=== PATIENT | female | born 1945 | race American Indian/Alaskan Native ===

== ENCOUNTER 2017-10-22 19:21 | Observation (INO) | payer OTHER, MEDICARE ==
--- NOTE | 2017-10-22 19:37 | PDOC ---
History of Present Illness - General History Source: Patient Exam Limitations: No Limitations - History of Present Illness Initial Comments: 10/22/17 21:28 The patient is a 72 year old female, with a significant past medical history of HTN, HLD, GERD, Fibromyalgia, Cervical spondylosis, Kidney stones who presents to the emergency department with generalized weakness today. Patient is accompanied by daughter who reports patient was bent over gardening this afternoon. Later, patient walked into the house and felt increasingly dizzy and lightheaded. Patient laid down and daughter measured her blood pressure ( 80/50) . Daughter gave salt water however her BP did not increase. Patient denies any previous episodes of hypotension and presents to the ED for further evaluation. Patient endorses chills, nausea and SOB enroute to the ED. Patient notes chronic neck pain, 10/10 in severity, radiating from the base of skull down to her back. Patient took Tylenol at home however denies any relief. Patient denies chest pain, palpitations, diaphoresis, headache. Patient denies fever, abdominal pain, vomit, diarrhea or constipation. Patient denies dysuria, frequency, urgency or hematuria. Patient denies sick contacts or recent travel. Allergies: oxycodone, amoxicillin Past surgical history: None Social history: denies etoh, smoking, recreational drug use PCP: Dr. Cazares <Mary Ross - Last Filed: 10/23/17 00:28> - General History Source: Patient Exam Limitations: No Limitations <Nevaeh Quintero - Last Filed: 10/23/17 00:31> - General Chief Complaint: Weakness Stated Complaint: WEAKNESS Time Seen by Provider: 10/22/17 19:36 Past History <Mary Ross - Last Filed: 10/23/17 00:28> - Past Medical History Anemia: No Asthma: No COPD: No GI Disorders: Yes (gerd) HTN: Yes Hypercholesterolemia: Yes - Suicide/Smoking/Psychosocial Hx Smoking History: Never smoked Have you smoked in the past 12 months: No Hx Alcohol Use: No Substance Use Type: None Hx Substance Use Treatment: No <Nevaeh Quintero - Last Filed: 10/23/17 00:31> - Past Medical History Allergies/Adverse Reactions: Allergies Allergy/AdvReac Type Severity Reaction Status Date / Time acetaminophen [From Percocet] Allergy Unverified 10/22/17 21:38 amoxicillin [Amoxicillin] Allergy Verified 10/22/17 19:35 oxycodone HCl [From Percocet] Allergy Verified 10/22/17 19:35 Home Medications: Ambulatory Orders Atenolol [Tenormin -] 50 mg PO BID #0 tablet 05/19/13 Atorvastatin Ca [Lipitor] 10 mg PO HS #0 tablet 05/19/13 Gabapentin [Neurontin] 100 mg PO TID #0 capsule 05/19/13 Ibandronate Sodium [Boniva (Monthly)] 150 mg PO DAILY #0 tablet 05/19/13 Lansoprazole [Prevacid] 30 mg PO DAILY #0 tab. 05/19/13 Review of Systems - Review of Systems Able to Perform ROS?: Yes Comments:: 10/22/17 21:28 GENERAL/CONSTITUTIONAL: +chills. +generalized weakness. No: fever, weakness, loss of appetite. HEAD, EYES, EARS, NOSE AND THROAT: No: change in vision, ear pain, discharge, sore throat, throat swelling. CARDIOVASCULAR: No: chest pain, lightheadedness, palpitations, syncope RESPIRATORY: No: cough, shortness of breath, wheezing, hemoptysis, stridor. GASTROINTESTINAL: No: nausea, vomiting, abdominal cramping, diarrhea, rectal bleeding, constipation. GENITOURINARY: No: dysuria, hematuria, frequency, urgency, flank pain. MUSCULOSKELETAL: +neck pain. No: back pain, joint pain, muscle swelling or pain SKIN: No: lesions, pallor, rash or easy bruising. NEUROLOGIC: No: headache, vertigo, paresthesias, weakness ENDOCRINE: No: unexplained weight gain or loss HEMATOLOGIC/LYMPHATIC: No: anemia, easy bleeding, swelling nodes <Mary Ross - Last Filed: 10/23/17 00:28> *Physical Exam - Vital Signs Last Vital Signs Temp Pulse Resp BP Pulse Ox 97.2 F L 59 L 18 113/66 100 10/22/17 19:35 10/22/17 19:35 10/22/17 19:35 10/22/17 19:35 10/22/17 19:35 - Physical Exam Comments: 10/22/17 21:28 GENERAL: The patient is in no acute distress. HEAD: Normal with no signs of trauma. EYES: PERRLA, EOMI, sclera anicteric, conjunctiva clear. ENT: Ears normal, nares patent, oropharynx clear without exudates. Moist mucous membranes. NECK: Normal range of motion, supple without lymphadenopathy, JVD, or masses. LUNGS: Breath sounds equal, clear to auscultation bilaterally. No wheezes, and no crackles. HEART:Regular rate and rhythm, normal S1 and S2 without murmur, rub or gallop. ABDOMEN: Soft, nontender, normoactive bowel sounds. No guarding, no rebound. EXTREMITIES: Normal range of motion, no edema. No clubbing or cyanosis. No erythema, or tenderness. NEUROLOGICAL: Cranial nerves II through XII grossly intact. Normal speech. No focal neurological deficits. MUSCULOSKELETAL: Back nontender to palpation, no CVA tenderness SKIN: Warm, Dry, normal turgor, no rashes or lesions noted. <Mary Ross - Last Filed: 10/23/17 00:28> ED Treatment Course - LABORATORY CBC & Chemistry Diagram: 10/22/17 20:43 10/22/17 20:43 - ADDITIONAL ORDERS Additional order review: Laboratory Results 10/22/17 20:43 Urine Color Straw Urine Appearance Clear Urine pH 7.0 Ur Specific Union 1.005 Urine Protein Negative Urine Glucose (UA) Negative Urine Ketones Negative Urine Blood Negative Urine Nitrite Negative Urine Bilirubin Negative Urine Urobilinogen Negative Ur Leukocyte Esterase 1+ H Urine WBC (Auto) 7 Urine RBC (Auto) 1 Ur Epithelial Cells Rare 10/22/17 20:43 RBC 3.74 MCV 98.7 H MCHC 34.2 RDW 12.9 MPV 8.6 D Neutrophils % 67.2 Lymphocytes % 23.2 D Monocytes % 7.9 Eosinophils % 0.9 Basophils % 0.8 <Mary Ross - Last Filed: 10/23/17 00:28> - LABORATORY CBC & Chemistry Diagram: 10/22/17 20:43 10/22/17 20:43 <Nevaeh Quintero - Last Filed: 10/23/17 00:31> Medical Decision Making - Medical Decision Making Paged Dr. Cazares via cell number. Patient case discussed. Patient to be admitted under her service. 10/23/17 00:28 <Mary Ross - Last Filed: 10/23/17 00:28> - Medical Decision Making 10/22/17 21:21 Ms Su is a 72 yo F with a h/o HTN, HLD, Cervical spinal stenosis, fibromyalgia She presents to the ER with her daughter due to weakness Pt was in her usual state of health, noted her typical neck pain Took tylenol at 4pm She was in her garden, bent over working When she stood up and came in to the home, she noted worsening neck pain She also noted dizziness No chest pain No palpitations No vertigo No fevers or chills (+) nausea, (-) vomiting or diarrhea No prior episodes quite this bad Pt daughter took blood pressure at the time and noted that she was hypotensive Pt reported shortness of breath No chest pain 10/22/17 21:21 ON examination Pt appears weak Answers questions RRR CTA No abd tenderness Moves all extremities CN intacts Alert and oriented Will do: Labs EKG IV hydration CT head/neck CTA chest r/o PE Will place on observation EKG: SR, rate of 68 bpm, axis nml, intervals nml, no st elevations, t waves inverted v2-v6 (similar to prior) 10/22/17 21:51 Laboratory Tests 10/22/17 10/22/17 10/22/17 20:43 20:43 20:43 WBC 6.3 Hgb 12.6 Hct 36.9 Plt Count 268 Sodium 143 Potassium 4.4 Chloride 105 Carbon Dioxide 30 BUN 17 Creatinine 0.8 Random Glucose 124 H Creatine Kinase 101 Troponin I < 0.02 Urine Blood Negative Urine Nitrite Negative Ur Leukocyte Esterase 1+ H Urine WBC (Auto) 7 Ur Epithelial Cells Rare Pt ordered for tylenol for pain Pt going to CT head, cspine, CTA chest to eval for PE (given hypoxia, orthostasis) <Nevaeh Quintero - Last Filed: 10/23/17 00:31> *DC/Admit/Observation/Transfer - Attestations Scribe Attestion: 10/22/17 21:28 Documentation prepared by Mary Ross, acting as medical legal investigator for Nevaeh Quintero MD <Mary Ross - Last Filed: 10/23/17 00:28> - Discharge Dispostion Decision to Admit order: Yes <Nevaeh Quintero - Last Filed: 10/23/17 00:31> Diagnosis at time of Disposition: Dizziness, Pre-syncope Cervical spondylosis Qualifiers: Spinal osteoarthritis complication: unspecified spinal osteoarthritis Qualified Code(s): M47.812 - Spondylosis without myelopathy or radiculopathy, cervical region - Discharge Dispostion Condition at time of disposition: Stable
[2017-10-22 20:49] LABS: BASO % 0.8 % (0-2.0); EOS % 0.9 % (0-4.5); HEMATOCRIT 36.9 % (32.4-45.2); HEMOGLOBIN 12.6 GM/dL (10.7-15.3); LYMPH % 23.2 % (8-40); MCH 33.7 pg (25.7-33.7); MCHC 34.2 g/dl (32.0-36.0); MEAN CELL VOLUME 98.7 fl (80-96); MEAN PLT VOLUME 8.6 fl (7.5-11.1); MONO % 7.9 % (3.8-10.2); NEUT % 67.2 % (42.8-82.8); PLATELET COUNT 268 K/MM3 (134-434); RBC 3.74 M/mm3 (3.60-5.2); RDW 12.9 % (11.6-15.6); WHITE BLOOD COUNT 6.3 K/mm3 (4.0-10.0)
[2017-10-22 20:52] LABS: URINE APPEARANCE CLEAR; URINE BILIRUBIN NEGATIVE (<2.0 mg/dL); URINE COLOR STRAW; URINE GLUCOSE (UA) NEGATIVE (NEGATIVE); URINE KETONE NEGATIVE (NEGATIVE); URINE NITRITE NEGATIVE (NEGATIVE); URINE PROTEIN NEGATIVE (NEGATIVE); URINE UROBILINOGEN NEGATIVE mg/dL (0.2-1.0)
[2017-10-22 20:57] LABS: URINE LEUK ESTERASE 1+ (NEGATIVE)
[2017-10-22 21:02] LABS: EPI CELLS RARE /HPF (FEW)
[2017-10-22] MEDS ORDERED: ACETAMINOPHEN 1000 MG/100 ML VIAL (NON FORMULARY) IVPB ONE (21:21)
[2017-10-22 21:28] LABS: ALBUMIN 3.8 g/dl (3.4-5.0); ANION GAP 8 (8-16); BILIRUBIN,TOTAL 0.2 mg/dL (0.2-1.0); BLOOD UREA NITROGEN 17 mg/dL (7-18); CALCIUM 8.8 mg/dL (8.5-10.1); CHLORIDE 105 mmol/L (98-107); CO2 30 mmol/L (21-32); CREATININE 0.8 mg/dL (0.55-1.02); GLUCOSE,RANDOM 124 mg/dL (74-106); SGPT/ALT 28 U/L (12-78); SODIUM 143 mmol/L (136-145); TOT PROT 7.2 g/dl (6.4-8.2)
[2017-10-22 21:31] LABS: ALK PHOS 92 U/L (45-117)
[2017-10-22 21:34] LABS: POTASSIUM 4.4 mmol/L (3.5-5.1); SGOT/AST 47 U/L (15-37)
[2017-10-23] MEDS ORDERED: morphine CARPU-JECT 4 MG/1 ML DISP.SYRIN IVPUSH ONE (00:27)
[2017-10-23] MEDS ORDERED: morphine SULFATE 4 MG/ML VIAL ONE ×2 (00:50→10:56)
[2017-10-23] MEDS ORDERED: ONDANSETRON 4 MG/2 ML VIAL IVPB ONE (04:01)
[2017-10-23] MEDS ORDERED: ONDANSETRON 4 MG/2 ML VIAL ONE ×2 (04:02→10:56)
[2017-10-23] MEDS ORDERED: MECLIZINE HCL 25 MG TABLET (FP) PO ONE (04:16)
[2017-10-23 05:30] VITALS: BMI 24.5
--- NOTE | 2017-10-23 08:55 | EKG ---
Test Reason : Blood Pressure : / mmHG Vent. Rate : 068 BPM Atrial Rate : 068 BPM P-R Int : 138 ms QRS Dur : 082 ms QT Int : 394 ms P-R-T Axes : 047 005 025 degrees QTc Int : 418 ms NORMAL SINUS RHYTHM T WAVE ABNORMALITY, CONSIDER ANTERIOR ISCHEMIA ABNORMAL ECG WHEN COMPARED WITH ECG OF 18-MAY-2013 11:05, NO SIGNIFICANT CHANGE WAS FOUND Confirmed by RHONDA LEUNG MD ([id number]) on 10/23/2017 8:55:24 AM Referred By: Confirmed By:RHONDA LEUNG MD
--- NOTE | 2017-10-23 09:03 | CON.NEURO ---
Consult Consult Specialty:: neurology Reason for Consultation:: dizziness - History of Present Illness History of Present Illness: The patient is a 72 year old female, with a significant past medical history of HTN, HLD, GERD, Fibromyalgia, Cervical spondylosis, Kidney stones who presents to the emergency department with generalized weakness today. Patient is accompanied by daughter who reports patient was bent over gardening this afternoon. Later, patient walked into the house and felt increasingly dizzy and lightheaded. Patient laid down and daughter measured her blood pressure ( 80/50) . Daughter gave salt water however her BP did not increase. Patient denies any previous episodes of hypotension and presents to the ED for further evaluation. Patient endorses chills, nausea and SOB enroute to the ED. Patient notes chronic neck pain, 10/10 in severity, radiating from the base of skull down to her back. Patient took Tylenol at home however denies any relief. I saw and examined the pt at the bedside. She started having dizziness since yesterday ; describes as through vertigo, unsteady when she gets up. Allergies: oxycodone, amoxicillin Past surgical history: None Social history: denies etoh, smoking, recreational drug use PCP: Dr. Cazares - Alcohol/Substance Use Hx Alcohol Use: No - Smoking History Smoking history: Never smoked Have you smoked in the past 12 months: No Home Medications - Allergies Allergies/Adverse Reactions: Allergies Allergy/AdvReac Type Severity Reaction Status Date / Time amoxicillin [Amoxicillin] Allergy Verified 10/23/17 00:56 oxycodone HCl [From Percocet] Allergy Verified 10/23/17 00:56 - Home Medications Home Medications: Ambulatory Orders Atenolol [Tenormin -] 50 mg PO BID #0 tablet 05/19/13 Lansoprazole [Prevacid] 30 mg PO DAILY #0 tab 05/19/13 Atorvastatin Ca [Lipitor] 10 mg PO DAILY 10/23/17 Gabapentin [Neurontin] 200 mg PO BID 10/23/17 Ibandronate Sodium [Boniva (Monthly)] 150 mg PO MONTHLY 10/23/17 Review of Systems - Review of Systems Constitutional: reports: Other (dizziness) Eyes: reports: No Symptoms HENT: reports: No Symptoms Neck: reports: Other (pain) Cardiovascular: reports: No Symptoms Respiratory: reports: No Symptoms Gastrointestinal: reports: No Symptoms Physical Exam-Neuro Vital Signs: Vital Signs Temperature 97.9 F 10/23/17 06:00 Pulse Rate 68 10/23/17 06:00 Respiratory Rate 20 10/23/17 06:00 Blood Pressure 123/68 10/23/17 06:00 O2 Sat by Pulse Oximetry (%) 99 10/23/17 04:15 Constitutional: Yes: Well Nourished, Mild Distress Cardiovascular: Yes: Regular Rate and Rhythm Respiratory: Yes: CTA Bilaterally Gastrointestinal: Yes: WNL Labs: CBC, BMP 10/22/17 20:43 10/22/17 20:43 - Neuro Exam Level Of Consciousness: Yes: Oriented to Person, Oriented to Place, Oriented to Time Eyes: Yes: PERRLA Speech: WNL Cranial Nerves II-XII Intact: Yes DTR's: 1+ Left Bicep, 1+ Right Bicep, 1+ Left Tricep, 1+ Right Tricep, 1+ Left Brachioradialis, 1+ Right Brachioradialis, 1+ Left Achilles, 1+ Right Achilles Response to light touch: Normal Response to pain prick: Normal Coordination: Normal: Finger to Nose, Heel to [place] Motor Strength: 5/5: Left Arm, Right Arm, Left Leg, Right Leg Gait: Other (unsteady ) Imaging - Results Cat Scan: Image Reviewed (CTH :No acute finding CT cervical : DDD, osteophyte, spondylolysthesis) Problem List - Problems (1) Cervical spondylosis Code(s): M47.812 - SPONDYLOSIS W/O MYELOPATHY OR RADICULOPATHY, CERVICAL REGION Qualifiers: Spinal osteoarthritis complication: unspecified spinal osteoarthritis Qualified Code(s): M47.812 - Spondylosis without myelopathy or radiculopathy, cervical region (2) Dizziness Code(s): R42 - DIZZINESS AND GIDDINESS (3) Pre-syncope Code(s): R55 - SYNCOPE AND COLLAPSE Assessment/Plan 72 year old female, with a significant past medical history of HTN, HLD, GERD, Fibromyalgia, Cervical spondylosis, Kidney stones who presents to the emergency department with generalized weakness and dizziness. She feels vertigo even when lying down, unsteady and nauseated, no dysmetria or focal weakness ; CN intact ; Hx and exam suggestive of ? posterior circulation involvement VS vestibular lesion; not a tPA candidate b/o out of window for tPA administration; I will obtain MRI /a WO stat MRA neck wo Meclizine as needed PT/OT Fall precautions baby asp for stroke prevention Neurocheck q 4 hours B12, TSH, RPR, Homocysateine Health maintenance per primary team Thank you for allowing us to participate in the care of this patioent. Ankush Cherry MD
[2017-10-23] MEDS ORDERED: traMADol HCL 50 MG TABLET PO PRN (09:57)
[2017-10-23] MEDS ORDERED: GABAPENTIN 400 MG CAPSULE (FP) PO SCH (10:00)
--- NOTE | 2017-10-23 10:05 | PN ---
Progress Note (short form) - Note Progress Note: Chief Complaint: Events noted, noted reviewed. Complaining of persistent dizziness with nausea, denies any vomiting, complaining of generalized weakness and neck discomfort, denies any chest pain or dyspnea History of Present Illness: Seen and examined on telemetry. Full consult dictated - Current Medication List Current Medications Atenolol (Tenormin -) 50 mg PO BID ALLAN Atorvastatin Calcium (Lipitor -) 10 mg PO HS ALLAN Gabapentin (Neurontin -) 400 mg PO BID ALLAN Levofloxacin (Levaquin -) 500 mg PO DAILY@0600 ALLAN Meclizine HCl (Antivert -) 12.5 mg PO BID ALLAN Pantoprazole Sodium (Protonix -) 40 mg PO DAILY ALLAN Tramadol HCl (Ultram -) 50 mg PO Q8H PRN PRN Reason: PAIN- - Review of Systems Constitutional: denies: Chills, Fever Cardiovascular: As noted above Respiratory: denies: Cough or Sputum Production Gastrointestinal: denies: Vomiting, Diarrhea, Constipation or Abdominal Pain but reports: Nausea Genitourinary: denies: Dysuria Neurological: reports: Dizziness but denies: Headaches Endocrine: denies: Intolerance to Cold, Intolerance to Heat - Objective Vital Signs: Last Vital Signs Temp Pulse Resp BP Pulse Ox 97.9 F 68 20 123/68 99 10/23/17 06:00 10/23/17 06:00 10/23/17 06:00 10/23/17 06:00 10/23/17 04:15 Intake & Output 10/20/17 10/21/17 10/22/17 10/23/17 23:59 23:59 23:59 23:59 Weight 120 lb 121 lb 3.2 oz Constitutional: No Distress, Calm, Thin Neck: Supple Negative JVD Respiratory: Diminished Breath Sounds at the Bases Cardiovascular: S1 S2 Regular Rate and Rhythm no murmur Gastrointestinal: Soft Benign Normal Bowel Sounds Ext: No Edema Labs: CBC, BMP 10/22/17 20:43 10/22/17 20:43 Hepatic Panel Total Bilirubin 0.2 mg/dL (0.2-1.0) D 10/22/17 20:43 AST 47 U/L (15-37) H 10/22/17 20:43 ALT 28 U/L (12-78) 10/22/17 20:43 Alkaline Phosphatase 92 U/L (45-117) 10/22/17 20:43 Albumin 3.8 g/dl (3.4-5.0) 10/22/17 20:43 Assessment/Plan ASSESSMENT: 1. Dizziness clinical presentation is highly suggestive/consistent with benign positional vertigo 2. Transient hypotension etiology unclear unless associated vaso-vagal syndrome/ pre-syncope 3. Abnormal EKG CAD angina pectoris to be excluded 4. Probable diastolic LV dysfunction with class 0 NYHA classification LV failure 5. HTN 6. History of abnormal Hg A1c 7. Hypercholesterolemia 8. Advanced degenerative cervical disc disease with cervical radiculopathy, chronic pain syndrome 9. History History of fibromyalgia 10. History of nephrolithiasis PLAN: 1. Continue Tenormin 2. Add ACEI or ARBS unless it is contraindicated 3. Continue Lipitor 4. Continue ASA 5. Agree with Meclizine therapy 6. Additional evaluation as per neurology service 7. Additional evaluation of the above noted abnormal EKG can be performed as outpatient including echocardiography and MPI study Above was reviewed in detail with the patient and her family who were a the bedside Ronak Colindres M.D.
[2017-10-23] MEDS: MECLIZINE HCL 12.5 MG TABLET PO SCH ×2 (10:25→21:23)
[2017-10-23] MEDS: PANTOPRAZOLE 40 MG TABLET (FP) PO SCH (10:25)
[2017-10-23] MEDS: ATENOLOL 50 MG TABLET (FP) PO SCH ×2 (10:26→21:23)
[2017-10-23] MEDS: ONDANSETRON 4 MG/2 ML VIAL IVPUSH PRN ×2 (11:00→15:01)
[2017-10-23] MEDS: MORPHINE SULFATE 2 MG/ML VIAL IVPUSH PRN (11:00)
--- NOTE | 2017-10-23 11:57 | PN ---
Progress Note, Physician Chief Complaint: vitals stable dizziness present nausea and vomiting present Neurology,cardiology consult appreciated Ct chest shows liver nodule,will get Gi evaluation for MRI brain - Current Medication List Current Medications: Active Medications Atenolol (Tenormin -) 50 mg PO BID [facility] Last Admin: 10/23/17 10:26 Dose: 50 mg Atorvastatin Calcium (Lipitor -) 10 mg PO HS [facility] Dextrose/Sodium Chloride (D5-1/2ns -) 1,000 mls @ 80 mls/hr IV ASDIR [facility] Levofloxacin (Levaquin -) 500 mg PO DAILY@0600 [facility] Meclizine HCl (Antivert -) 12.5 mg PO BID [facility] Last Admin: 10/23/17 10:25 Dose: 12.5 mg Morphine Sulfate (Morphine Sulfate) 2 mg IVPUSH Q4H PRN PRN Reason: PAIN- Ondansetron HCl (Zofran Injection) 4 mg IVPUSH Q4H PRN PRN Reason: NAUSEA AND/OR VOMITING Pantoprazole Sodium (Protonix -) 40 mg PO DAILY [facility] Last Admin: 10/23/17 10:25 Dose: 40 mg - Objective Vital Signs: Vital Signs Temperature 98.2 F 10/23/17 10:00 Pulse Rate 80 10/23/17 10:00 Respiratory Rate 18 10/23/17 10:00 Blood Pressure 141/85 10/23/17 10:00 O2 Sat by Pulse Oximetry (%) 99 10/23/17 04:15 Constitutional: Yes: No Distress Eyes: Yes: Conjunctiva Clear HENT: Yes: Atraumatic Neck: Yes: Supple Cardiovascular: Yes: Regular Rate and Rhythm Respiratory: Yes: Regular, CTA Bilaterally Gastrointestinal: Yes: Normal Bowel Sounds, Soft Musculoskeletal: Yes: WNL Extremities: Yes: WNL Edema: No Peripheral Pulses WNL: Yes Neurological: Yes: Alert, Oriented ...Motor Strength: WNL Psychiatric: Yes: WNL, Alert Labs: CBC, BMP 10/22/17 20:43 10/22/17 20:43 - ....Imaging Cat Scan: Report Reviewed EKG: Report Reviewed Assessment/Plan Dizziness ? BPV vomiting Cervical spondylosis HTN Hypercholestrolemia DJD neck GERD liver nodule PLAN Continue medication Will f/u MRI report Will f/u cardiology and Neuro consult Fall precautions Gi evaluation
[2017-10-23] MEDS: DEXTROSE 5%-0.45% SALINE 1,000 ML IV SCH (12:00)
[2017-10-23] MEDS: GABAPENTIN 100 MG CAPSULE (FP) PO SCH ×2 (12:48→21:23)
[2017-10-23] MEDS: ASPIRIN COATED 81 MG TABLET.EC PO SCH (12:48)
--- NOTE | 2017-10-23 12:59 | CONS ---
DATE OF CONSULTATION: 10/23/2017 REQUESTED BY: Talat Cazares MD CHIEF COMPLAINT: Dizziness, nausea, hypotension, cardiovascular evaluation. A 72-year-old female of [place] with known history of hypertensive cardiovascular disease, borderline diabetes mellitus, abnormal hemoglobin A1c, hypercholesterolemia, degenerative cervical disk disease with cervical radiculopathy who presented to [facility] with sudden onset of dizziness with associated nausea and generalized weakness. The patient stated that she was outside watering plants when she had sudden onset of generalized weakness, dizziness, and associated nausea. The patient did not report any vomiting. Blood pressure was obtained by her daughter. Subsequently, she was noted to be hypotensive. The patient did not report any associated palpitations. The patient denied any syncope. The patient does not have any history of coronary artery disease or congestive heart failure. The patient denies any chest discomfort. The patient denies any dyspnea, orthopnea, paroxysmal nocturnal dyspnea, or peripheral edema. The patient reports fatigue and tiredness. The patient continues to report persistence of neck discomfort with radiation to the upper extremity related to degenerative cervical disk disease. PAST MEDICAL HISTORY: Hypertensive cardiovascular disease, abnormal hemoglobin A1c, prediabetic, hypercholesterolemia, degenerative cervical disk disease with cervical radiculopathy, fibromyalgia, gastroesophageal reflux disease, nephrolithiasis. SOCIAL HISTORY: Nonsmoker. FAMILY HISTORY: Positive for coronary artery disease. ALLERGIES: Intolerances to PERCOCET and AMOXICILLIN. MEDICAL THERAPY AT HOME: Lipitor 10 mg once a day; Neurontin 200 mg twice a day; Boniva 150 mg once a month; atenolol 50 mg twice a day; Prevacid 30 mg once a day. REVIEW OF SYSTEMS: Head/Neck: She denies headache, photophobia, blurring of vision. Respiratory: No cough or sputum production. Cardiovascular: As noted above. Gastrointestinal: She reported nausea, but denied vomiting. Denied diarrhea, constipation, or abdominal discomfort. Musculoskeletal: Neck discomfort with radiation to both upper extremities. Genitourinary: No symptoms reported. Endocrine: Prediabetic. PHYSICAL EXAMINATION: Vital Signs: Blood pressure is 123/68 mmHg, manual blood pressure currently is 160/90 supine, 160/90 sitting in bed, pulse rate is 68 beats/min. Head/Neck: Pupils equal and reactive to light and accommodation. Extraocular muscles are intact. Nonicteric sclerae. Negative JVD. No bruit appreciated. Chest: Diminished breath sounds in the bases. Cardiovascular: S1, S2, regular. No murmurs, clicks, or gallops. Abdomen: Soft, benign, normoactive bowel sounds. Extremities: No pitting edema. Intact distal pulses. No calf tenderness. Electrocardiogram reveals sinus rhythm with nonspecific NT or T-wave abnormality. No change compared to prior electrocardiogram performed in 2014. CBC revealed a white cell count of 6.3, hemoglobin 12.6, platelet count 268. Basic metabolic profiled revealed a sodium of 143, potassium 4.4, BUN of 17, creatinine 0.8. AST 47. ASSESSMENT: 1. Dizziness: Clinical presentation is high suggestive/consistent with benign positional vertigo. 2. Transient hypotension, etiology unclear, unless associated vasovagal syndrome/presyncope. 3. Abnormal electrocardiogram; coronary artery disease, angina pectoris to be excluded. 4. Probable diastolic and left ventricular dysfunction with Class 0 [place] Heart [employer] Classification left ventricular failure. 5. Hypertensive cardiovascular disease. 6. History of abnormal hemoglobin A1c. 7. Hypercholesterolemia. 8. Advanced degenerative cervical disk disease with cervical radiculopathy, chronic pain syndrome. 9. History of fibromyalgia. 10. History of gastroesophageal reflux disease. 11. History of nephrolithiasis. RECOMMENDATIONS: 1. Continuation of Tenormin therapy. 2. Addition of SANDRA inhibitor, angiotensin-receptor blockers unless it is contraindicated. 3. Continuation of Lipitor therapy. 4. Continuation of aspirin therapy. 5. Agree with meclizine therapy administration. 6. Additional evaluation as per Neurology Service. 7. Additional cardiovascular evaluation of the above-noted abnormal electrocardiogram can be performed on outpatient basis, including echocardiography and myocardial perfusion imaging study. Above was reviewed in detail with the patient and her family, who were at the bedside. Thank you for the kind referral. SERG FOFANA M.D. [id number]
--- NOTE | 2017-10-23 15:25 | HP ---
DATE OF ADMISSION: 10/23/2017 The patient is a 72-year-old female with a significant past medical history of hypertension, hyperlipidemia, reflux disease, fibromyalgia, cervical spondylosis , kidney stones who presented to the emergency department with complaints of generalized weakness, as per the patient. The patient is accompanied by the daughter to the emergency room. As per the daughter, the patient was gardening this afternoon. The patient walked into the house and felt increasingly dizzy and lightheaded. When patient was bent over and the daughter measured her blood pressure, it was 80/50 and daughter gave her some salt water. Even with, the BP was not increasing. The patient denies any previous episodes of hypotension and dizziness, so came to the emergency room for further evaluation. Denies any chest pain, palpitations, headache, or blurry vision. The patient complains mildly dizzy feeling, nausea, and shortness of breath when she was coming to the emergency room. The patient had chronic neck pain radiating from the base of the skull down to her back. She took Tylenol but no relief. No history of any abdominal pain, no constipation, no diarrhea. No dysuria, frequency, or urgency. No history of any recent travel or sick contact. ALLERGIES: OXYCODONE, AMOXICILLIN, and PERCOCET. SURGICAL HISTORY: Nothing significant. SOCIAL HISTORY: No history of alcohol, drugs, or smoking. Lives with the family. PAST MEDICAL HISTORY: History of hypertension, hypercholesterolemia, cervical spondylosis, fibromyalgia, arthralgia. MEDICATIONS: Atenolol 50 mg p.o. b.i.d., atorvastatin 10 mg p.o. at bedtime, gabapentin 100 mg p.o. t.i.d., Boniva 150 mg p.o. daily, and Prevacid 30 mg p.o. daily. REVIEW OF SYSTEMS: General: The patient complains of mild generalized weakness and dizziness. Head and Neck: No change in vision, ear pain, discharge, or sore throat. Cardiovascular: No chest pain, no palpitations. Respiratory: Mild shortness of breath present. No wheezing, no hemoptysis. Gastrointestinal: No nausea. No vomiting, abdominal cramping, diarrhea. Genitourinary: No urinary symptoms. Musculoskeletal: Neck pain radiating to the upper back. Skin: No lesion, no pallor, no easy bruisability. Neurological: Complains of dizziness and generalized weakness. No sensory disturbance. Endocrine: No unexplained weight loss. Hematological: No anemia. PHYSICAL EXAMINATION: Vital Signs: In the emergency room, temperature 97.2, pulse 59, respirations 18 , blood pressure 113/66, pulse 100. General: The patient is alert, oriented x3, in no apparent distress. Head and Neck: Normal. No signs of trauma. Pupils equally reactive to light and accommodation. ENT: Ears normal. Nose normal. Neck: Normal range of motion. No JVD. Lungs: Equal breath sounds. No wheeze and no crackles. Heart: First and 2nd sounds normal. Regular rhythm. No gallop. Abdomen: Soft and nontender. No guarding, no rigidity. Extremities: Full range of motion. No edema, no clubbing, no cyanosis, no erythema, no tenderness. Neurological: Cranial nerves II through XII normal. Speech normal. No focal neurological deficit. No apparent motor or sensory deficit. Reflex normal. Musculoskeletal: No tenderness, no CVA tenderness. Skin: Normal. LABORATORIES: CBC shows WBC 6.3, hemoglobin 12.6, hematocrit of 36.9, platelets 268. Chemistry: Sodium 143, potassium 4.4, chloride 105, bicarbonate 30, BUN 17, creatinine 0.8, glucose 124. AST 47. Cardiac enzymes x2 are negative. Urine shows leukocyte esterase 1+. Urine culture pending. EKG shows normal sinus rhythm, T-wave abnormality. Compared to the old EKG, no significant change was found. CT of the head done; no acute bleed or mass or fracture. No CT evidence of acute infarct. Chest CT and cervical spine CT done. Cervical spine CT preliminary report: As per the ER, it was negative. Chest CT was negative. Cervical spine CT with degenerative disease, osteophyte, and spondylolisthesis. The patient was given in the emergency room Zofran, Tylenol, 1 dose of Levaquin and gabapentin, meclizine, and morphine sulfate for the pain. Patient admitted in the telemetry with an admitting diagnoses of dizziness, clinical presentation highly suggestive of benign positional vertigo. Transient hypotension, etiology unclear. . Abnormal EKG. Hypercholesterolemia. Degenerative cervical disk disease. Chronic pain syndrome. History of fibromyalgia. PLAN: Continue the home medications. Neurology and Cardiology consult. MRI of the neck. Pain medication. Monitor the neurological symptoms. The patient was stable on the floor. RIO ROCHA M.D. [id number] MTDD
[2017-10-23] MEDS ORDERED: METOCLOPRAMIDE HCL INJECTION 10 MG/2 ML VIAL IVPUSH ONE (16:15)
--- NOTE | 2017-10-23 19:17 | CON.GI ---
Consult Consult Specialty:: GI for Dr. Husain Reason for Consultation:: Abnormal liver chemistry - History of Present Illness History of Present Illness: For Dr. Husain, who will assume care on Tuesday. Chart reviewed. Events noted. Prior admissions reviewed. GI was consulted for abnormal liver chemistry. Per encounter in the ED : The patient is a 72 year old female, with a significant past medical history of HTN , HLD, GERD, Fibromyalgia, Cervical spondylosis, Kidney stones who presents to the emergency department with generalized weakness today. Patient is accompanied by daughter who reports patient was bent over gardening this afternoon. Later, patient walked into the house and felt increasingly dizzy and lightheaded. Patient laid down and daughter measured her blood pressure ( 80/50) . Daughter gave salt water however her BP did not increase. Patient denies any previous episodes of hypotension and presents to the ED for further evaluation. Patient endorses chills, nausea and SOB enroute to the ED. Patient notes chronic neck pain, 10/10 in severity, radiating from the base of skull down to her back. Patient took Tylenol at home however denies any relief. The patient was noted to have AST 47 with normal ALT, ALP, bili, albumin, PLT. MCV 98. No liver imaging was done on this admission. Reviewing past admissions revealed similarly elevated AST in 2013. At the time of this encounter, the patient appears not in distress. Surrounded by family members. Reports no prior history of acute, or chronic issues with the liver. No personal history of jaundice, or abnormal liver enzymes. She takes Lipitor on a regular bases and Tylenol PRN. No chronic NSAIDs, or alcohol. No exposure to viral hepatitis, or risk factors for the same. No autoimmune disease in the immediate family. - History Source History Provided By: Patient, Family Member, Medical Record - Alcohol/Substance Use Hx Alcohol Use: No - Smoking History Smoking history: Never smoked Have you smoked in the past 12 months: No Home Medications - Allergies Allergies/Adverse Reactions: Allergies Allergy/AdvReac Type Severity Reaction Status Date / Time amoxicillin [Amoxicillin] Allergy Verified 10/23/17 00:56 oxycodone HCl [From Percocet] Allergy Verified 10/23/17 00:56 - Home Medications Home Medications: Ambulatory Orders Atenolol [Tenormin -] 50 mg PO BID #0 tablet 05/19/13 Lansoprazole [Prevacid] 30 mg PO DAILY #0 tab 05/19/13 Atorvastatin Ca [Lipitor] 10 mg PO DAILY 10/23/17 Gabapentin [Neurontin] 200 mg PO BID 10/23/17 Ibandronate Sodium [Boniva (Monthly)] 150 mg PO MONTHLY 10/23/17 Family Disease History - Family Disease History Family History: Unremarkable Review of Systems Findings/Remarks: As per HPI, H&P Physical Exam-GI Vital Signs: Vital Signs Temperature 98.4 F 10/23/17 14:07 Pulse Rate 66 10/23/17 14:07 Respiratory Rate 20 10/23/17 14:07 Blood Pressure 136/77 10/23/17 14:07 O2 Sat by Pulse Oximetry (%) 99 10/23/17 09:00 Constitutional: Yes: No Distress, Calm Eyes: Yes: Conjunctiva Clear. No: Sclera Icterus HENT: Yes: Atraumatic Neck: Yes: Supple Cardiovascular: Yes: Regular Rate and Rhythm Respiratory: Yes: Regular Gastrointestinal Inspection: No: Ascites, Distention ...Auscultate: Yes: Normoactive Bowel Sounds ...Palpate: Yes: Soft. No: Firm/Rigid, Guarding, Hepatomegaly, Mass, Tenderness , Tenderness, Rebound Neurological: Yes: Alert, Oriented Labs: CBC, BMP 10/22/17 20:43 10/22/17 20:43 Laboratory Last Values WBC 6.3 K/mm3 (4.0-10.0) 10/22/17 20:43 RBC 3.74 M/mm3 (3.60-5.2) 10/22/17 20:43 Hgb 12.6 GM/dL (10.7-15.3) 10/22/17 20:43 Hct 36.9 % (32.4-45.2) 10/22/17 20:43 MCV 98.7 fl (80-96) H 10/22/17 20:43 MCH 33.7 pg (25.7-33.7) 10/22/17 20:43 MCHC 34.2 g/dl (32.0-36.0) 10/22/17 20:43 RDW 12.9 % (11.6-15.6) 10/22/17 20:43 Plt Count 268 K/MM3 (134-434) 10/22/17 20:43 MPV 8.6 fl (7.5-11.1) D 10/22/17 20:43 Absolute Neuts (auto) 4.2 # 10/22/17 20:43 Neutrophils % 67.2 % (42.8-82.8) 10/22/17 20:43 Lymphocytes % 23.2 % (8-40) D 10/22/17 20:43 Monocytes % 7.9 % (3.8-10.2) 10/22/17 20:43 Eosinophils % 0.9 % (0-4.5) 10/22/17 20:43 Basophils % 0.8 % (0-2.0) 10/22/17 20:43 Nucleated RBC % 0 % (0-0) 10/22/17 20:43 Sodium 143 mmol/L (136-145) 10/22/17 20:43 Potassium 4.4 mmol/L (3.5-5.1) 10/22/17 20:43 Chloride 105 mmol/L (98-107) 10/22/17 20:43 Carbon Dioxide 30 mmol/L (21-32) 10/22/17 20:43 Anion Gap 8 (8-16) 10/22/17 20:43 BUN 17 mg/dL (7-18) 10/22/17 20:43 Creatinine 0.8 mg/dL (0.55-1.02) 10/22/17 20:43 Creat Clearance w eGFR > 60 (>60) 10/22/17 20:43 Random Glucose 124 mg/dL (74-106) H 10/22/17 20:43 Calcium 8.8 mg/dL (8.5-10.1) 10/22/17 20:43 Total Bilirubin 0.2 mg/dL (0.2-1.0) D 10/22/17 20:43 AST 47 U/L (15-37) H 10/22/17 20:43 ALT 28 U/L (12-78) 10/22/17 20:43 Alkaline Phosphatase 92 U/L (45-117) 10/22/17 20:43 Creatine Kinase 101 IU/L (26-192) 10/22/17 20:43 Troponin I < 0.02 ng/ml (0.00-0.05) 10/22/17 20:43 Total Protein 7.2 g/dl (6.4-8.2) 10/22/17 20:43 Albumin 3.8 g/dl (3.4-5.0) 10/22/17 20:43 Urine Color Straw 10/22/17 20:43 Urine Appearance Clear 10/22/17 20:43 Urine pH 7.0 (5.0-8.0) 10/22/17 20:43 Ur Specific [place] 1.005 (1.001-1.035) 10/22/17 20:43 Urine Protein Negative (NEGATIVE) 10/22/17 20:43 Urine Glucose (UA) Negative (NEGATIVE) 10/22/17 20:43 Urine Ketones Negative (NEGATIVE) 10/22/17:43 Urine Blood Negative (NEGATIVE) 10/22/17:43 Urine Nitrite Negative (NEGATIVE) 10/22/17 20:43 Urine Bilirubin Negative (<2.0 mg/dL) 10/22/17:43 Urine Urobilinogen Negative mg/dL (0.2-1.0) 10/22/17:43 Ur Leukocyte Esterase 1+ (NEGATIVE) H 10/22/17 20:43 Urine WBC (Auto) 7 /hpf (3-5) 10/22/17:43 Urine RBC (Auto) 1 /hpf (0-3) 10/22/17 20:43 Ur Epithelial Cells Rare /HPF (FEW) 10/22/17 20:43 Problem List - Problems (1) Elevated AST (SGOT) Code(s): R74.0 - NONSPEC ELEV OF LEVELS OF TRANSAMNS & LACTIC ACID DEHYDRGNSE Assessment/Plan A 72F with the above acute and chronic medical problems noted to have minimally elevated AST while all other liver parameters appear to be normal. No significant liver history was elicited from the patient, or from prior admissions. It also appears that the AST was similarly elevated in 2014. Assuming the origin of the elevated AST is the liver, the medications, including Lipitor and acetaminophen, are the very likely etiology. I would not stop Lipitor, or PRN Tylenol at this stage. Persistent, minimal elevation may also represent a normal variant. Recommend obtaining outpatient liver chemistries from yearly physicals as well as imaging, if any. Observe. Discussed with the patient and her family. Dr. Husain will assume care tomorrow.
[2017-10-23] MEDS ORDERED: PT OWN MED DRAWER 7, Y5N ONE (20:42)
[2017-10-23] MEDS: ATORVASTATIN CA 10 MG TABLET (FP) PO SCH (21:24)
[2017-10-24] MEDS: DEXTROSE 5%-0.45% SALINE 1,000 ML IV SCH ×2 (07:02→12:16)
[2017-10-24 08:07] LABS: HEMATOCRIT 36.4 % (32.4-45.2); HEMOGLOBIN 12.5 GM/dL (10.7-15.3); MCH 33.9 pg (25.7-33.7); MCHC 34.5 g/dl (32.0-36.0); MEAN CELL VOLUME 98.4 fl (80-96); MEAN PLT VOLUME 8.7 fl (7.5-11.1); PLATELET COUNT 238 K/MM3 (134-434); RDW 12.4 % (11.6-15.6)
[2017-10-24 08:32] LABS: CHLORIDE 105 mmol/L (98-107); POTASSIUM 3.4 mmol/L (3.5-5.1); SODIUM 141 mmol/L (136-145)
[2017-10-24 08:42] LABS: ALBUMIN 3.4 g/dl (3.4-5.0); ALK PHOS 62 U/L (45-117); ANION GAP 8 (8-16); BILIRUBIN,TOTAL 0.5 mg/dL (0.2-1.0); BLOOD UREA NITROGEN 6 mg/dL (7-18); CALCIUM 8.7 mg/dL (8.5-10.1); CO2 28 mmol/L (21-32); CREATININE 0.6 mg/dL (0.55-1.02); GLUCOSE,RANDOM 131 mg/dL (74-106); SGOT/AST 37 U/L (15-37); SGPT/ALT 22 U/L (12-78); TOT PROT 6.5 g/dl (6.4-8.2)
--- NOTE | 2017-10-24 09:18 | PN ---
Progress Note (short form) - Note Progress Note: Neurology - History of Present Illness History of Present Illness: The patient is a 72 year old female, with a significant past medical history of HTN, HLD, GERD, Fibromyalgia, Cervical spondylosis, Kidney stones who presented to the emergency department with generalized weakness. Reportedly, the patient was bent over gardening tthen walked into the house and felt increasingly dizzy and lightheaded. Patient laid down and daughter measured her blood pressure ( 80 /50). Daughter gave salt water however her BP did not increase. Patient denies any previous episodes of hypotension and presented to the ED for further evaluation. She has been having episodic dizzyness and completed imaging with MRI brain whcih I reviewed and did not show acute chanages. MRA head and neck also reviewed and without vascular malformations or aneurysms. She is feeling better today. No new events overnight. IV fluids running. Active Medications Aspirin (Ecotrin -) 81 mg PO DAILY [facility] Last Admin: 10/23/17 12:48 Dose: 81 mg Atenolol (Tenormin -) 50 mg PO BID [facility] Last Admin: 10/23/17 21:23 Dose: 50 mg Atorvastatin Calcium (Lipitor -) 10 mg PO HS [facility] Last Admin: 10/23/17 21:24 Dose: 10 mg Gabapentin (Neurontin -) 200 mg PO BID [facility] Last Admin: 10/23/17 21:23 Dose: 200 mg Dextrose/Sodium Chloride (D5-1/2ns -) 1,000 mls @ 80 mls/hr IV ASDIR [facility] Last Admin: 10/24/17 07:02 Dose: 80 mls/hr Levofloxacin (Levaquin -) 500 mg PO DAILY@0600 [facility] Last Admin: 10/24/17 07:02 Dose: 500 mg Meclizine HCl (Antivert -) 12.5 mg PO BID [facility] Last Admin: 10/23/17 21:23 Dose: 12.5 mg Morphine Sulfate (Morphine Sulfate) 2 mg IVPUSH Q4H PRN PRN Reason: PAIN- Last Admin: 10/23/17 11:00 Dose: 2 mg Ondansetron HCl (Zofran Injection) 4 mg IVPUSH Q4H PRN PRN Reason: NAUSEA AND/OR VOMITING Last Admin: 10/23/17 15:01 Dose: 4 mg Pantoprazole Sodium (Protonix -) 40 mg PO DAILY [facility] Last Admin: 10/23/17 10:25 Dose: 40 mg Physical Exam-Neuro Vital Signs Period Temp Pulse Resp BP Sys/Stephens Pulse Ox Last 24 Hr 97.8 F-98.4 F 62-80 16-20 103-141/51-85 99 Constitutional: Yes: Well Nourished, Mild Distress Cardiovascular: Yes: Regular Rate and Rhythm Respiratory: Yes: CTA Bilaterally Gastrointestinal: Yes: WNL Level Of Consciousness: Yes: Oriented to Person, Oriented to Place, Oriented to Time Eyes: Yes: PERRLA Speech: WNL Cranial Nerves II-XII Intact: Yes DTR's: 1+ Left Bicep, 1+ Right Bicep, 1+ Left Tricep, 1+ Right Tricep, 1+ Left Brachioradialis, 1+ Right Brachioradialis, 1+ Left Achilles, 1+ Right Achilles Response to light touch: Normal Response to pain prick: Normal Coordination: Normal: Finger to Nose, Heel to [place] Motor Strength: 5/5: Left Arm, Right Arm, Left Leg, Right Leg CBCD WBC 5.0 K/mm3 (4.0-10.0) 10/24/17 06:00 RBC 3.70 M/mm3 (3.60-5.2) 10/24/17 06:00 Hgb 12.5 GM/dL (10.7-15.3) 10/24/17 06:00 Hct 36.4 % (32.4-45.2) 10/24/17 06:00 MCV 98.4 fl (80-96) H 10/24/17 06:00 MCHC 34.5 g/dl (32.0-36.0) 10/24/17 06:00 RDW 12.4 % (11.6-15.6) 10/24/17 06:00 Plt Count 238 K/MM3 (134-434) 10/24/17 06:00 MPV 8.7 fl (7.5-11.1) 10/24/17 06:00 CMP Sodium 141 mmol/L (136-145) 10/24/17 06:00 Potassium 3.4 mmol/L (3.5-5.1) L 10/24/17 06:00 Chloride 105 mmol/L (98-107) 10/24/17 06:00 Carbon Dioxide 28 mmol/L (21-32) 10/24/17 06:00 Anion Gap 8 (8-16) 10/24/17 06:00 BUN 6 mg/dL (7-18) L 10/24/17 06:00 Creatinine 0.6 mg/dL (0.55-1.02) 10/24/17 06:00 Creat Clearance w eGFR > 60 (>60) 10/24/17 06:00 Calcium 8.7 mg/dL (8.5-10.1) 10/24/17 06:00 Total Bilirubin 0.5 mg/dL (0.2-1.0) D 10/24/17 06:00 AST 37 U/L (15-37) 10/24/17 06:00 ALT 22 U/L (12-78) 10/24/17 06:00 Alkaline Phosphatase 62 U/L (45-117) 10/24/17 06:00 Total Protein 6.5 g/dl (6.4-8.2) 10/24/17 06:00 Albumin 3.4 g/dl (3.4-5.0) 10/24/17 06:[address] head MRI brain MRA head MRA neck all reviwed and discussed Plan: 72 year old female, with a significant past medical history of HTN, HLD, GERD, Fibromyalgia, Cervical spondylosis, Kidney stones who presented to the emergency department with generalized weakness. Reportedly, the patient was bent over gardening tthen walked into the house and felt increasingly dizzy and lightheaded. Patient laid down and daughter measured her blood pressure ( 80/50) . Daughter gave salt water however her BP did not increase. Patient denies any previous episodes of hypotension and presented to the ED for further evaluation. She has been having episodic dizzyness and completed imaging with MRI brain cih I reviewed and did not show acute chanages. MRA head and neck also reviewed and without vascular malformations or aneurysms. She is feeling better today. No new events overnight. IV fluids running. Meclezine as needed. No sudden head movements. Increased hydration recommended. Monitor BP, maintain normotensive range. Continue ASA 81mg daily for CVA prevention.
[2017-10-24] MEDS: PANTOPRAZOLE 40 MG TABLET (FP) PO SCH (10:23)
[2017-10-24] MEDS: GABAPENTIN 100 MG CAPSULE (FP) PO SCH ×2 (10:23→21:12)
[2017-10-24] MEDS: ASPIRIN COATED 81 MG TABLET.EC PO SCH (10:23)
[2017-10-24] MEDS: MECLIZINE HCL 12.5 MG TABLET PO SCH ×2 (10:23→21:12)
[2017-10-24] MEDS: ATENOLOL 50 MG TABLET (FP) PO SCH ×2 (10:24→21:12)
[2017-10-24] MEDS ORDERED: POTASSIUM CHLORIDE TABS 20 MEQ TABLET.ER (FP) PO ONE (11:00)
--- NOTE | 2017-10-24 11:28 | PN ---
Progress Note, Physician Chief Complaint: vitals stable mild dizziness present Neurology and cardiology note appreciated MRI of brain negative - Current Medication List Current Medications: Active Medications Aspirin (Ecotrin -) 81 mg PO DAILY [facility] Last Admin: 10/24/17 10:23 Dose: 81 mg Atenolol (Tenormin -) 50 mg PO BID [facility] Last Admin: 10/24/17 10:24 Dose: 50 mg Atorvastatin Calcium (Lipitor -) 10 mg PO HS [facility] Last Admin: 10/23/17 21:24 Dose: 10 mg Gabapentin (Neurontin -) 200 mg PO BID [facility] Last Admin: 10/24/17 10:23 Dose: 200 mg Dextrose/Sodium Chloride (D5-1/2ns -) 1,000 mls @ 80 mls/hr IV ASDIR [facility] Last Admin: 10/24/17 07:02 Dose: 80 mls/hr Levofloxacin (Levaquin -) 500 mg PO DAILY@0600 [facility] Last Admin: 10/24/17 07:02 Dose: 500 mg Meclizine HCl (Antivert -) 12.5 mg PO BID [facility] Last Admin: 10/24/17 10:23 Dose: 12.5 mg Morphine Sulfate (Morphine Sulfate) 2 mg IVPUSH Q4H PRN PRN Reason: PAIN- Last Admin: 10/23/17 11:00 Dose: 2 mg Ondansetron HCl (Zofran Injection) 4 mg IVPUSH Q4H PRN PRN Reason: NAUSEA AND/OR VOMITING Last Admin: 10/23/17 15:01 Dose: 4 mg Pantoprazole Sodium (Protonix -) 40 mg PO DAILY [facility] Last Admin: 10/24/17 10:23 Dose: 40 mg - Objective Vital Signs: Vital Signs Temperature 98.0 F 10/24/17 10:17 Pulse Rate 75 10/24/17 10:17 Respiratory Rate 18 10/24/17 10:17 Blood Pressure 135/76 10/24/17 10:17 O2 Sat by Pulse Oximetry (%) 99 10/23/17 21:00 Constitutional: Yes: No Distress Eyes: Yes: Conjunctiva Clear HENT: Yes: Atraumatic, Normocephalic Neck: Yes: Supple, Trachea Midline Cardiovascular: Yes: Regular Rate and Rhythm Respiratory: Yes: Regular, CTA Bilaterally Gastrointestinal: Yes: Normal Bowel Sounds Musculoskeletal: Yes: WNL Extremities: Yes: WNL Edema: No Peripheral Pulses WNL: Yes Neurological: Yes: WNL, Alert ...Motor Strength: WNL Psychiatric: Yes: WNL, Alert Labs: CBC, BMP 10/24/17 06:00 10/24/17 06:00 - ....Imaging MRI: Report Reviewed Assessment/Plan Dizziness ? BPV vomiting Cervical spondylosis HTN Hypercholestrolemia DJD neck GERD liver nodule PLAN Continue medication Will f/u cardiology and Neuro consult Fall precautions Gi f/u for liver nodule
--- NOTE | 2017-10-24 11:50 | PN ---
Progress Note, Physician History of Present Illness: Mild positional dizziness, no events on telemetry. - Current Medication List Current Medications: Active Medications Aspirin (Ecotrin -) 81 mg PO DAILY [facility] Last Admin: 10/24/17 10:23 Dose: 81 mg Atenolol (Tenormin -) 50 mg PO BID [facility] Last Admin: 10/24/17 10:24 Dose: 50 mg Atorvastatin Calcium (Lipitor -) 10 mg PO HS [facility] Last Admin: 10/23/17 21:24 Dose: 10 mg Gabapentin (Neurontin -) 200 mg PO BID [facility] Last Admin: 10/24/17 10:23 Dose: 200 mg Dextrose/Sodium Chloride (D5-1/2ns -) 1,000 mls @ 80 mls/hr IV ASDIR [facility] Last Admin: 10/24/17 07:02 Dose: 80 mls/hr Levofloxacin (Levaquin -) 500 mg PO DAILY@0600 [facility] Last Admin: 10/24/17 07:02 Dose: 500 mg Meclizine HCl (Antivert -) 12.5 mg PO BID [facility] Last Admin: 10/24/17 10:23 Dose: 12.5 mg Morphine Sulfate (Morphine Sulfate) 2 mg IVPUSH Q4H PRN PRN Reason: PAIN- Last Admin: 10/23/17 11:00 Dose: 2 mg Ondansetron HCl (Zofran Injection) 4 mg IVPUSH Q4H PRN PRN Reason: NAUSEA AND/OR VOMITING Last Admin: 10/23/17 15:01 Dose: 4 mg Pantoprazole Sodium (Protonix -) 40 mg PO DAILY [facility] Last Admin: 10/24/17 10:23 Dose: 40 mg - Objective Vital Signs: Vital Signs Temperature 98.0 F 10/24/17 10:17 Pulse Rate 75 10/24/17 10:17 Respiratory Rate 18 10/24/17 10:17 Blood Pressure 135/76 10/24/17 10:17 O2 Sat by Pulse Oximetry (%) 99 10/23/17 21:00 Constitutional: Yes: No Distress, Calm Neck: Yes: Supple Cardiovascular: Yes: Regular Rate and Rhythm Respiratory: Yes: Regular, CTA Bilaterally Gastrointestinal: Yes: Normal Bowel Sounds, Soft Edema: No Labs: CBC, BMP 10/24/17 06:00 10/24/17 06:00 - ....Imaging EKG: Report Reviewed (Tele: SR) Problem List - Problems (1) Dizziness Code(s): R42 - DIZZINESS AND GIDDINESS (2) Pre-syncope Code(s): R55 - SYNCOPE AND COLLAPSE (3) Hyperlipidemia Code(s): E78.5 - HYPERLIPIDEMIA, UNSPECIFIED Qualifiers: Hyperlipidemia type: pure hypercholesterolemia Qualified Code(s): E78.00 - Pure hypercholesterolemia, unspecified; E78.0 - Pure hypercholesterolemia (4) Diastolic dysfunction Code(s): I51.9 - HEART DISEASE, UNSPECIFIED Assessment/Plan 1. Vasovagal pre-syncope with transient hypotension since resolved 2. Abnormal EKG CAD angina pectoris to be excluded 3. Diastolic dysfunction 4. HTN 5. History of abnormal Hg A1c 6. Hypercholesterolemia 7. Advanced degenerative cervical disc disease with cervical radiculopathy, chronic pain syndrome 8. History History of fibromyalgia 9. History of nephrolithiasis PLAN: 1. Continue Tenormin 50 bid 2. Continue Lipitor 10 qhs 3. Continue ASA 81 qd 4. Meclizine therapy as needed, brain imaging unremarkable 5. Recommended stay well-hydrated and abortive manuevers once prodromal sxs experienced 6. Additional evaluation of the above noted abnormal EKG can be performed as outpatient including echocardiography and MPI study
[2017-10-24] MEDS ORDERED: PT OWN MED DRAWER 7, Y5N ONE (20:18)
[2017-10-24] MEDS: ATORVASTATIN CA 10 MG TABLET (FP) PO SCH (21:12)
[2017-10-25] MEDS: ONDANSETRON 4 MG/2 ML VIAL IVPUSH PRN (06:05)
[2017-10-25] MEDS: MORPHINE SULFATE 2 MG/ML VIAL IVPUSH PRN (06:06)
--- NOTE | 2017-10-25 07:42 | PN ---
Progress Note (short form) - Note Progress Note: Chief Complaint: Events noted, noted reviewed. continues to report persistent nausea and generalized weakness, reports persistent neck discomfort, denies any chest pain or dyspnea History of Present Illness: Seen and examined on telemetry. Events noted, noted reviewed. continues to report persistent nausea and generalized weakness, reports persistent neck discomfort, denies any chest pain or dyspnea - Current Medication List Current Medications Aspirin (Ecotrin -) 81 mg PO DAILY [facility] Last Admin: 10/25/17 08:59 Dose: 81 mg Atenolol (Tenormin -) 50 mg PO BID [facility] Last Admin: 10/25/17 08:59 Dose: 50 mg Atorvastatin Calcium (Lipitor -) 10 mg PO HS [facility] Last Admin: 10/24/17 21:12 Dose: 10 mg Gabapentin (Neurontin -) 200 mg PO BID [facility] Last Admin: 10/25/17 08:59 Dose: 200 mg Dextrose/Sodium Chloride (D5-1/2ns -) 1,000 mls @ 80 mls/hr IV ASDIR [facility] Last Admin: 10/24/17 12:16 Dose: 80 mls/hr Levofloxacin (Levaquin -) 500 mg PO DAILY@0600 [facility] Last Admin: 10/25/17 05:56 Dose: 500 mg Meclizine HCl (Antivert -) 12.5 mg PO BID [facility] Last Admin: 10/25/17 08:59 Dose: 12.5 mg Morphine Sulfate (Morphine Sulfate) 2 mg IVPUSH Q4H PRN PRN Reason: PAIN- Last Admin: 10/25/17 06:06 Dose: 2 mg Ondansetron HCl (Zofran Injection) 4 mg IVPUSH Q4H PRN PRN Reason: NAUSEA AND/OR VOMITING Last Admin: 10/25/17 06:05 Dose: 4 mg Pantoprazole Sodium (Protonix -) 40 mg PO DAILY [facility] Last Admin: 10/25/17 08:59 Dose: 40 mg - Review of Systems Constitutional: denies: Chills, Fever Cardiovascular: As noted above Respiratory: denies: Cough or Sputum Production Gastrointestinal: denies: Vomiting, Diarrhea, Constipation or Abdominal Pain but reports: Nausea Genitourinary: denies: Dysuria Neurological: denies: Headaches Endocrine: denies: Intolerance to Cold, Intolerance to Heat - Objective Vital Signs: Last Vital Signs Temp Pulse Resp BP Pulse Ox 97.9 F 67 18 158/89 97 10/25/17 06:00 10/25/17 06:00 10/25/17 06:00 10/25/17 06:00 10/25/17 05:00 Intake & Output 10/22/17 10/23/17 10/24/17 10/25/17 23:59 23:59 23:59 23:59 Intake Total 420 3060 730 Balance 420 3060 730 Weight 120 lb 121 lb 3.2 oz Constitutional: No Distress, Calm, Thin Neck: Supple Negative JVD Respiratory: Clear to A&P Bilaterally Cardiovascular: S1 S2 Regular Rate and Rhythm no murmur Gastrointestinal: Soft Benign Normal Bowel Sounds Ext: No Edema Labs: CBC, BMP 10/24/17 06:00 10/25/17 06:30 Assessment/Plan ASSESSMENT: 1. Dizziness clinical presentation is highly suggestive/consistent with benign positional vertigo, resolved 2. Transient hypotension etiology unclear unless associated vaso-vagal syndrome/ pre-syncope 3. Abnormal EKG CAD angina pectoris to be excluded 4. Probable diastolic LV dysfunction with class 0 NYHA classification LV failure 5. HTN 6. History of abnormal Hg A1c 7. Hypercholesterolemia 8. Advanced degenerative cervical disc disease with cervical radiculopathy, chronic pain syndrome 9. History History of fibromyalgia 10. History of nephrolithiasis PLAN: 1. Continue Tenormin 2. As outlined add ACEI or ARBS unless it is contraindicated, initiate Diovan 3. Continue Lipitor 4. Continue ASA 5. Continue Meclizine therapy 6. as outlined additional evaluation of the above noted abnormal EKG can be performed as outpatient including echocardiography and MPI study Above was reviewed in detail with the patient Ronak Colindres M.D.
[2017-10-25 08:12] LABS: CHLORIDE 108 mmol/L (98-107); SODIUM 143 mmol/L (136-145)
[2017-10-25 08:21] LABS: ALBUMIN 3.6 g/dl (3.4-5.0); ALK PHOS 66 U/L (45-117); ANION GAP 8 (8-16); BILIRUBIN,TOTAL 0.6 mg/dL (0.2-1.0); BLOOD UREA NITROGEN 5 mg/dL (7-18); CALCIUM 8.6 mg/dL (8.5-10.1); CO2 27 mmol/L (21-32); CREATININE 0.6 mg/dL (0.55-1.02); GLUCOSE,RANDOM 156 mg/dL (74-106); SGPT/ALT 30 U/L (12-78); TOT PROT 7.1 g/dl (6.4-8.2)
[2017-10-25 08:22] LABS: POTASSIUM 4.2 mmol/L (3.5-5.1); SGOT/AST 63 U/L (15-37)
[2017-10-25] MEDS ORDERED: PT OWN MED DRAWER 7, Y5N ONE (08:39)
[2017-10-25] MEDS: GABAPENTIN 100 MG CAPSULE (FP) PO SCH (08:59)
[2017-10-25] MEDS: MECLIZINE HCL 12.5 MG TABLET PO SCH (08:59)
[2017-10-25] MEDS: ATENOLOL 50 MG TABLET (FP) PO SCH (08:59)
[2017-10-25] MEDS: ASPIRIN COATED 81 MG TABLET.EC PO SCH (08:59)
[2017-10-25] MEDS: PANTOPRAZOLE 40 MG TABLET (FP) PO SCH (08:59)
--- NOTE | 2017-10-25 09:24 | PN ---
Progress Note (short form) - Note Progress Note: Neurology - History of Present Illness History of Present Illness: The patient is a 72 year old female, with a significant past medical history of HTN, HLD, GERD, Fibromyalgia, Cervical spondylosis, Kidney stones who presented to the emergency department with generalized weakness. Reportedly, the patient was bent over gardening tthen walked into the house and felt increasingly dizzy and lightheaded. Patient laid down and daughter measured her blood pressure ( 80 /50). Daughter gave salt water however her BP did not increase. Patient denies any previous episodes of hypotension and presented to the ED for further evaluation. She has been having episodic dizzyness and completed imaging with MRI brain whcih I reviewed and did not show acute chanages. MRA head and neck also reviewed and without vascular malformations or aneurysms. She is feeling better today but report occasional dizzyness. Was having neck discomfort, likely arthritic. IV fluids running. Was also c/o of nausea and reports receiving Zofan. Active Medications Aspirin (Ecotrin -) 81 mg PO DAILY [facility] Last Admin: 10/25/17 08:59 Dose: 81 mg Atenolol (Tenormin -) 50 mg PO BID [facility] Last Admin: 10/25/17 08:59 Dose: 50 mg Atorvastatin Calcium (Lipitor -) 10 mg PO HS [facility] Last Admin: 10/24/17 21:12 Dose: 10 mg Gabapentin (Neurontin -) 200 mg PO BID [facility] Last Admin: 10/25/17 08:59 Dose: 200 mg Dextrose/Sodium Chloride (D5-1/2ns -) 1,000 mls @ 80 mls/hr IV ASDIR [facility] Last Admin: 10/24/17 12:16 Dose: 80 mls/hr Levofloxacin (Levaquin -) 500 mg PO DAILY@0600 [facility] Last Admin: 10/25/17 05:56 Dose: 500 mg Meclizine HCl (Antivert -) 12.5 mg PO BID [facility] Last Admin: 10/25/17 08:59 Dose: 12.5 mg Morphine Sulfate (Morphine Sulfate) 2 mg IVPUSH Q4H PRN PRN Reason: PAIN- Last Admin: 10/25/17 06:06 Dose: 2 mg Ondansetron HCl (Zofran Injection) 4 mg IVPUSH Q4H PRN PRN Reason: NAUSEA AND/OR VOMITING Last Admin: 10/25/17 06:05 Dose: 4 mg Pantoprazole Sodium (Protonix -) 40 mg PO DAILY [facility] Last Admin: 10/25/17 08:59 Dose: 40 mg Valsartan (Diovan -) 80 mg PO DAILY [facility] Physical Exam-Neuro Vital Signs Temperature 97.9 F 10/25/17 06:00 Pulse Rate 67 10/25/17 06:00 Respiratory Rate 18 10/25/17 06:00 Blood Pressure 158/89 10/25/17 06:00 O2 Sat by Pulse Oximetry (%) 97 10/25/17 05:00 Constitutional: Yes: Well Nourished, Mild Distress Cardiovascular: Yes: Regular Rate and Rhythm Respiratory: Yes: CTA Bilaterally Gastrointestinal: Yes: WNL Level Of Consciousness: Yes: Oriented to Person, Oriented to Place, Oriented to Time Eyes: Yes: PERRLA Speech: WNL Cranial Nerves II-XII Intact: Yes DTR's: 1+ Left Bicep, 1+ Right Bicep, 1+ Left Tricep, 1+ Right Tricep, 1+ Left Brachioradialis, 1+ Right Brachioradialis, 1+ Left Achilles, 1+ Right Achilles Response to light touch: Normal Response to pain prick: Normal Coordination: Normal: Finger to Nose, Heel to [place] Motor Strength: 5/5: Left Arm, Right Arm, Left Leg, Right Leg CBCD WBC 5.0 K/mm3 (4.0-10.0) 10/24/17 06:00 RBC 3.70 M/mm3 (3.60-5.2) 10/24/17 06:00 Hgb 12.5 GM/dL (10.7-15.3) 10/24/17 06:00 Hct 36.4 % (32.4-45.2) 10/24/17 06:00 MCV 98.4 fl (80-96) H 10/24/17 06:00 MCHC 34.5 g/dl (32.0-36.0) 10/24/17 06:00 RDW 12.4 % (11.6-15.6) 10/24/17 06:00 Plt Count 238 K/MM3 (134-434) 10/24/17 06:00 MPV 8.7 fl (7.5-11.1) 10/24/17 06:00 CMP Sodium 143 mmol/L (136-145) 10/25/17 06:30 Potassium 4.2 mmol/L (3.5-5.1) 10/25/17 06:30 Chloride 108 mmol/L (98-107) H 10/25/17 06:30 Carbon Dioxide 27 mmol/L (21-32) 10/25/17 06:30 Anion Gap 8 (8-16) 10/25/17 06:30 BUN 5 mg/dL (7-18) L 10/25/17 06:30 Creatinine 0.6 mg/dL (0.55-1.02) 10/25/17 06:30 Creat Clearance w eGFR > 60 (>60) 10/25/17 06:30 Calcium 8.6 mg/dL (8.5-10.1) 10/25/17 06:30 Total Bilirubin 0.6 mg/dL (0.2-1.0) 10/25/17 06:30 AST 63 U/L (15-37) H 10/25/17 06:30 ALT 30 U/L (12-78) 10/25/17 06:30 Alkaline Phosphatase 66 U/L (45-117) 10/25/17 06:30 Total Protein 7.1 g/dl (6.4-8.2) 10/25/17 06:30 Albumin 3.6 g/dl (3.4-5.0) 10/25/17 06:[address] head MRI brain MRA head MRA neck all reviwed and discussed Plan: 72 year old female, with a significant past medical history of HTN, HLD, GERD, Fibromyalgia, Cervical spondylosis, Kidney stones who presented to the emergency department with generalized weakness. Reportedly, the patient was bent over gardening tthen walked into the house and felt increasingly dizzy and lightheaded. Patient laid down and daughter measured her blood pressure ( 80/50) . Daughter gave salt water however her BP did not increase. Patient denies any previous episodes of hypotension and presented to the ED for further evaluation. She has been having episodic dizzyness and completed imaging with MRI brain whcih I reviewed and did not show acute chanages. MRA head and neck also reviewed and without vascular malformations or aneurysms. She is feeling better today. No new events overnight. IV fluids running. Meclezine as needed. Zofran as needed. No sudden head movements. Continued hydration recommended. Monitor BP, maintain normotensive range. Continue ASA 81mg daily for CVA prevention. Cardiology note reviewed. Advised ambulation as much as possible.
--- NOTE | 2017-10-25 09:44 | PN ---
Progress Note, Physician Chief Complaint: vitals stable mild nausea present mild dizziness present Neurology and cardiology note appreciated MRI of brain negative - Current Medication List Current Medications: Active Medications Aspirin (Ecotrin -) 81 mg PO DAILY [facility] Last Admin: 10/25/17 08:59 Dose: 81 mg Atenolol (Tenormin -) 50 mg PO BID [facility] Last Admin: 10/25/17 08:59 Dose: 50 mg Atorvastatin Calcium (Lipitor -) 10 mg PO HS [facility] Last Admin: 10/24/17 21:12 Dose: 10 mg Gabapentin (Neurontin -) 200 mg PO BID [facility] Last Admin: 10/25/17 08:59 Dose: 200 mg Dextrose/Sodium Chloride (D5-1/2ns -) 1,000 mls @ 80 mls/hr IV ASDIR [facility] Last Admin: 10/24/17 12:16 Dose: 80 mls/hr Levofloxacin (Levaquin -) 500 mg PO DAILY@0600 [facility] Last Admin: 10/25/17 05:56 Dose: 500 mg Meclizine HCl (Antivert -) 12.5 mg PO BID [facility] Last Admin: 10/25/17 08:59 Dose: 12.5 mg Morphine Sulfate (Morphine Sulfate) 2 mg IVPUSH Q4H PRN PRN Reason: PAIN- Last Admin: 10/25/17 06:06 Dose: 2 mg Ondansetron HCl (Zofran Injection) 4 mg IVPUSH Q4H PRN PRN Reason: NAUSEA AND/OR VOMITING Last Admin: 10/25/17 06:05 Dose: 4 mg Pantoprazole Sodium (Protonix -) 40 mg PO DAILY [facility] Last Admin: 10/25/17 08:59 Dose: 40 mg Valsartan (Diovan -) 80 mg PO DAILY [facility] Last Admin: 10/25/17 09:31 Dose: 80 mg - Objective Vital Signs: Vital Signs Temperature 97.9 F 10/25/17 06:00 Pulse Rate 67 10/25/17 06:00 Respiratory Rate 18 10/25/17 06:00 Blood Pressure 158/89 10/25/17 06:00 O2 Sat by Pulse Oximetry (%) 97 10/25/17 05:00 Constitutional: Yes: No Distress Eyes: Yes: Conjunctiva Clear HENT: Yes: Atraumatic, Normocephalic Neck: Yes: Supple, Trachea Midline Cardiovascular: Yes: Regular Rate and Rhythm Respiratory: Yes: Regular, CTA Bilaterally Gastrointestinal: Yes: Normal Bowel Sounds, Soft Musculoskeletal: Yes: WNL Extremities: Yes: WNL Edema: No Peripheral Pulses WNL: Yes Neurological: Yes: Alert, Oriented ...Motor Strength: WNL Psychiatric: Yes: WNL, Alert Labs: CBC, BMP 10/24/17 06:00 10/25/17 06:30 Assessment/Plan Dizziness ? BPV vomiting improved nausea Cervical spondylosis HTN Hypercholestrolemia DJD neck GERD liver nodule PLAN Continue medication Will f/u cardiology and Neuro consult Fall precautions Gi f/u for liver nodule
[2017-10-25] MEDS ORDERED: VALSARTAN 80 MG TABLET (UD) PO SCH (10:00)
[2017-10-25 10:29] VITALS: BP 149/78; PULSE 71; TEMP 98.4
--- NOTE | 2017-10-29 08:09 | DS ---
DATE OF ADMISSION: 10/24/2017 DATE OF DISCHARGE: 10/25/2017 Patient is a 72-year-old female with a significant past medical history of hypertension, hyperlipidemia, reflux disease, fibromyalgia, cervical spondylosis , kidney stones, admitted with dizziness and generalized weakness. In the ER, patient's blood pressure was low. As per the daughter, she checked it at home. It was 80/50. Patient had some mild nausea and mild shortness of breath while she was coming to the ER. She had chronic neck pain. ALLERGIES: Allergy to OXYCODONE, AMOXICILLIN, and PERCOCET. SURGICAL HISTORY: Nothing significant. Patient's medications reviewed. In the ER, at the time of admission, the vitals were stable. Temperature 97.9, pulse rate of 68, respirations 20, blood pressure 123/68, saturation 99%. Her physical examination was normal. Neurological examination was normal. At the time of admission, as mentioned before, vitals stable. Patient had a CT of the cervical spine, showed significant degenerative change of the cervical spine. CT chest done. There was no pulmonary embolism but noted a 2.2-cm solid nodule on the right lobe of the liver. Head CT was normal; no acute bleed or mass or fracture. Brain MRI impression was there was no evidence of any AV_ malformation or flow-limiting stenosis. No evidence of stroke. MRA angiogram of the head: No aneurysm. Neck MRA showed no stenosis at the bifurcation of the common carotid, patent common internal and external carotid vertebral arteries and basilar artery. EKG showed T-wave abnormality. Compared to the old EKG, no significant change. Patient was admitted in telemetry, followed by Cardiology, Neurology, and Gastroenterology for the persistent nausea. Patient was treated with IV fluid and other home medications and pain medicine. Patient was stable during hospitalization and discharged home on home medication and meclizine. Recommended to follow with Gastroenterology for the liver nodule and Cardiology. Patient discharged home in a stable condition on home medications. At the time of admission, patient's CBC was normal. The chemistry was normal except for the AST 47. Urine showed leukocyte esterase 1+; so, treated symptomatically with Levaquin. Urine culture was negative. Jennifer [id number] [facility] CENTERAlmita
== END 2017-10-25 12:54 | disposition home or self-care (01) ==
LOC: JER 19:21 → UNDOADMOB 10-23 00:31 → INTOOBSV 10-23 00:31 → JERBED 10-23 00:31 → J4S 10-23 04:09 → JERBED 10-24 16:32
PROVIDERS: ADMIT Family Medicine; ATTEND Family Medicine
PROC: 3E033NZ Introduction of Analgesics, Hypnotics, Sedatives into Peripheral Vein, Percutaneous Approach (ICD-10-PCS; principal; 2017-10-24)
PROC: 3E033GC Introduction of Other Therapeutic Substance into Peripheral Vein, Percutaneous Approach (ICD-10-PCS; 2017-10-24)
PROC: 3E0337Z Introduction of Electrolytic and Water Balance Substance into Peripheral Vein, Percutaneous Approach (ICD-10-PCS; 2017-10-24)
DX: R55 Syncope and collapse (principal); R42 Dizziness and giddiness; M47.812 Spondylosis without myelopathy or radiculopathy, cervical region; I10 Essential (primary) hypertension; E78.5 Hyperlipidemia, unspecified; K21.9 Gastro-esophageal reflux disease without esophagitis; Z87.442 Personal history of urinary calculi; Z88.1 Allergy status to other antibiotic agents; R94.31 Abnormal electrocardiogram [ECG] [EKG]; R74.0 Nonspecific elevation of levels of transaminase and lactic acid dehydrogenase [LDH]; K76.89 Other specified diseases of liver
CPT/HCPCS: 36415; 70450-TC; 70544-TC; 70547-TC; 70551-TC; 71275-TC; 72125-TC; 80053; 81003; 81015; 82550; 84484; 85025; 85027; 87086; 93005; 93010; 96374; 96375; 96376; 99281-25; 99285-25; G0378; J0131

== ENCOUNTER 2018-06-28 05:07 | Day surgery (SDC) | payer OTHER, MEDICARE ==
[2018-06-27 15:24] VITALS: BMI 25.0
[2018-06-28] MEDS ORDERED: ACETAMINOPHEN 500 MG TABLET (FP) PO PRN (08:28)
[2018-06-28] MEDS ORDERED: ONDANSETRON 4 MG/2 ML VIAL IVPUSH PRN ×2 (08:28→09:24)
[2018-06-28] MEDS ORDERED: LACTATED RINGERS SOLUTION 1,000 ML IV SCH (08:30)
--- NOTE | 2018-06-28 08:35 | HP ---
History & Physical Update - Physical Physical: No Change - Assessment Assessment: No Change - Plan Plan: No Change (H&P reviwed, no changes for hysteroscopy D&C , for PMB, thicken EM)
[2018-06-28] MEDS ORDERED: LIDOCAINE HCL/PF 2% SDV 5ML VIAL ONE (08:56)
[2018-06-28] MEDS ORDERED: PROPOFOL 20 ML ONE ×2 (08:57→08:59)
[2018-06-28] MEDS ORDERED: oxyCODONE HCL 5 MG TABLET PO PRN (09:24)
[2018-06-28] MEDS ORDERED: ELECTROLYTE-148 SOLN 1,000 ML IV SCH (09:30)
--- NOTE | 2018-06-28 12:30 | OP ---
DATE OF OPERATION: 06/28/2018 PREOPERATIVE DIAGNOSES: Postmenopausal bleeding, thickened endometrium, rule out endometrial polyp. PROCEDURE: Hysteroscopy, dilatation and curettage and polypectomy. SURGEON: David Estes MD ANESTHESIA: General. ANESTHESIOLOGIST: KULDIP Keita ESTIMATED BLOOD LOSS: 25 mL. OPERATION: Patient was taken to the operating room. Under adequate general anesthesia in dorsal lithotomy position examination under anesthesia revealed external genitalia to be normal. Vagina was atrophic, no lesion. Cervix was clean, no gross lesion. Uterus was normal size. Adnexa: No masses were palpable. Then with a weighted speculum in the vagina anterior lip of the cervix was grasped with single-tooth tenaculum. Then uterine cavity sounded to 6 cm. Hysteroscope was introduced. Visualization of endocervical canal appeared to be normal. Endometrium was irregular. There was a small polyp at the mid body of the anterior wall of the uterus. Both cornual regions were identified. No other abnormality noted. Then cervix was gradually dilated and then endometrial polyp was removed and then endometrium was curetted. Patient tolerated procedure well. Left the OR in good condition. Jennifer [id number]
[2018-06-28 12:51] VITALS: TEMP 97.7
[2018-06-28 13:05] VITALS: BP 101/58; PULSE 66
--- NOTE | 2018-06-30 09:39 | PATH ---
Surgical Pathology Report Patient Name: MIR SHEN [facility]. Rec. #: [id number] /Age/Gender: 1945 (Age: 73) / F Account: [id number] Location: [facility] SURGICAL Taken: 06/28/2018 Received: 06/28/2018 Reported: 06/30/2018 Physicians: David Estes M.D. Specimen(s) Received A: POLYP B: ENDOMETRIAL CURETTINGS Clinical History Postmenopausal bleeding, thickened endometrium Final Diagnosis A. 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 B. 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 SCANT BENIGN CERVICAL TISSUE. Comment: Case seen interdepartmentally. Findings discussed with Dr. Estes. Electronically Signed Akila Macario M.D. Gross Description A. Received in formalin labeled "polyp," is a 0.5 x 0.4 x 0.1 cm aggregate of méndez red soft tissue fragments. The formalin is filtered and the specimen is entirely submitted in one cassette. B. Received in formalin labeled "endometrial curettings," is a 3.0 x 2.8 x 0.4 cm aggregate of méndez red soft tissue fragments. The formalin is filtered and the specimen is entirely submitted in 2 cassettes. /06/28/2018 saudi06/28/2018
== END 2018-06-28 12:35 | disposition home or self-care (01) ==
LOC: JASU-SURG 05:07
PROVIDERS: ATTEND Obstetrics & Gynecology
PROC: 0UJD8ZZ Inspection of Uterus and Cervix, Via Natural or Artificial Opening Endoscopic (ICD-10-PCS; 2018-06-28)
PROC: 0UB97ZX Excision of Uterus, Via Natural or Artificial Opening, Diagnostic (ICD-10-PCS; principal; 2018-06-28 09:00)
PROC: 0UDB7ZX Extraction of Endometrium, Via Natural or Artificial Opening, Diagnostic (ICD-10-PCS; 2018-06-28 09:00)
DX: N95.0 Postmenopausal bleeding (principal); N84.0 Polyp of corpus uteri
CPT/HCPCS: 82962; 88305-TC; 94760

== ENCOUNTER 2018-12-04 09:23 | Day surgery (SDC) | payer OTHER, MEDICARE ==
[2018-12-04 10:42] VITALS: BMI 24.2
[2018-12-04 11:44] VITALS: TEMP 97.8
[2018-12-04 14:19] VITALS: BP 138/64; PULSE 56
--- NOTE | 2018-12-06 20:14 | PATH ---
Surgical Pathology Report Patient Name: MIR SHEN [facility]. Rec. #: [id number] /Age/Gender: 1945 (Age: 73) / F Account: [id number] Location: [facility]-ENDOSCOPY Taken: 12/04/2018 Received: 12/04/2018 Reported: 12/06/2018 Physicians: Mau Husain M.D. Specimen(s) Received A: 2ND PORTION DUODENUM AND DUODENAL BULB B: ANTRUM C: DISTAL AND MID ESOPHAGUS Clinical History Dysphagia Postoperative diagnosis: Antral gastritis, GERD Final Diagnosis A. DUODENUM, SECOND PORTION AND DUODENAL BULB, BIOPSY: DUODENAL MUCOSA WITHOUT SIGNIFICANT PATHOLOGIC FINDINGS. B. STOMACH, ANTRUM, BIOPSY: GASTRIC ANTRAL MUCOSA WITH SEVERE CHRONIC ACTIVE GASTRITIS. IMMUNOHISTOCHEMICAL STAIN FOR H. PYLORI IS POSITIVE (MANY). C. DISTAL AND MID ESOPHAGUS, BIOPSY: SQUAMOUS MUCOSA WITH VASCULAR CONGESTION AND CHANGES CONSISTENT WITH MILD REFLUX ESOPHAGITIS. Electronically Signed Akila Macario M.D. Gross Description A. Received in formalin, labeled "biopsy second portion of duodenum and duodenal bulb" are 5 méndez, irregular portions of soft tissue ranging from 0.1-0.5 cm. in greatest dimension. The specimens are submitted in toto in one cassette. B. Received in formalin, labeled "biopsy antrum" are 3 méndez, irregular portions of soft tissue ranging from 0.2-0.4 cm. in greatest dimension. The specimens are submitted in toto in one cassette. C. Received in formalin, labeled "biopsy distal and mid esophagus" are 4 méndez, irregular portions of soft tissue ranging from 0.1-0.4 cm. in greatest dimension. The specimens are submitted in toto in one cassette. 12/04/2018 saudi12/04/2018
== END 2018-12-04 12:45 | disposition home or self-care (01) ==
LOC: JASU-ENDO 09:23
PROVIDERS: ATTEND Internal Medicine Gastroenterology
PROC: 0DB68ZX Excision of Stomach, Via Natural or Artificial Opening Endoscopic, Diagnostic (ICD-10-PCS; 2018-12-04)
PROC: 0DB18ZX Excision of Upper Esophagus, Via Natural or Artificial Opening Endoscopic, Diagnostic (ICD-10-PCS; 2018-12-04)
PROC: 0DB28ZX Excision of Middle Esophagus, Via Natural or Artificial Opening Endoscopic, Diagnostic (ICD-10-PCS; 2018-12-04)
PROC: 0DB98ZX Excision of Duodenum, Via Natural or Artificial Opening Endoscopic, Diagnostic (ICD-10-PCS; principal; 2018-12-04 10:45)
DX: K29.50 Unspecified chronic gastritis without bleeding (principal); K21.0 Gastro-esophageal reflux disease with esophagitis; B96.81 Helicobacter pylori [H. pylori] as the cause of diseases classified elsewhere; R10.13 Epigastric pain; R11.0 Nausea; R13.10 Dysphagia, unspecified; K44.9 Diaphragmatic hernia without obstruction or gangrene; I10 Essential (primary) hypertension; E78.5 Hyperlipidemia, unspecified; E11.9 Type 2 diabetes mellitus without complications; Z85.41 Personal history of malignant neoplasm of cervix uteri
CPT/HCPCS: 88305-TC; 88342-TC

== ENCOUNTER 2018-12-18 06:56 | Day surgery (SDC) | payer OTHER, MEDICARE ==
[2018-12-15 14:37] VITALS: BMI 25.9
[2018-12-18 08:38] VITALS: TEMP 97.7
[2018-12-18 09:55] VITALS: BP 116/69; PULSE 60
== END 2018-12-18 09:55 | disposition home or self-care (01) ==
LOC: JASU-ENDO 06:56
PROVIDERS: ATTEND Internal Medicine Gastroenterology
PROC: 0DJD8ZZ Inspection of Lower Intestinal Tract, Via Natural or Artificial Opening Endoscopic (ICD-10-PCS; principal; 2018-12-18 08:00)
DX: Z12.11 Encounter for screening for malignant neoplasm of colon (principal); Z80.0 Family history of malignant neoplasm of digestive organs

== ENCOUNTER 2022-05-25 19:28 | Emergency (ER) | payer OTHER ==
[2022-05-25 19:42] VITALS: BMI 24.4
[2022-05-25] MEDS ORDERED: LACTATED RINGERS SOLUTION 1000 ML INFUS.BAG IV ONE (22:35)
[2022-05-25] MEDS ORDERED: ONDANSETRON 4 MG/2 ML VIAL IVPUSH ONE (22:35)
[2022-05-25] MEDS ORDERED: ONDANSETRON 4 MG/2 ML VIAL ONE (22:45)
[2022-05-25 23:26] LABS: BASO % 0.3 % (0-2.0); EOS % 0.3 % (0-4.5); HEMATOCRIT 31.6 % (32.4-45.2); HEMOGLOBIN 10.7 GM/dL (10.7-15.3); LYMPH % 22.7 % (8-40); MCHC 33.7 g/dl (32.0-36.0); MEAN CELL VOLUME 106.7 fl (80-96); MEAN PLT VOLUME 7.7 fl (7.5-11.1); MONO % 10.8 % (3.8-10.2); NEUT % 65.9 % (42.8-82.8); PLATELET COUNT 325 10^3/uL (134-434); RBC 2.96 M/mm3 (3.60-5.2); WHITE BLOOD COUNT 2.8 K/mm3 (4.0-10.0)
[2022-05-25 23:30] LABS: PH,URINE 7.5 (5.0-8.0); URINE APPEARANCE CLEAR; URINE BILIRUBIN NEGATIVE (NEGATIVE); URINE COLOR YELLOW; URINE GLUCOSE (UA) NEGATIVE (NEGATIVE); URINE KETONE NEGATIVE (NEGATIVE); URINE LEUK ESTERASE NEGATIVE (NEGATIVE); URINE NITRITE NEGATIVE (NEGATIVE); URINE PROTEIN NEGATIVE (NEGATIVE); URINE UROBILINOGEN 0.2 mg/dL (0.2-1.0)
[2022-05-25 23:44] LABS: CALCIUM 9.1 mg/dL (8.5-10.1)
[2022-05-25 23:45] LABS: BLOOD UREA NITROGEN 9.7 mg/dL (7-18)
[2022-05-25 23:48] LABS: CREATININE 0.7 mg/dL (0.55-1.3)
[2022-05-25 23:49] LABS: TOT PROT 7.8 g/dl (6.4-8.2)
[2022-05-25 23:51] LABS: ANISOCYTOSIS 2+; MACROCYTOSIS 0
[2022-05-26 00:14] LABS: BILIRUBIN,TOTAL 0.4 mg/dL (0.2-1)
[2022-05-26 02:53] VITALS: RESP 18; TEMP 98.1
== END 2022-05-26 03:15 | disposition home or self-care (01) ==
LOC: JER 19:28
PROC: 3E033GC Introduction of Other Therapeutic Substance into Peripheral Vein, Percutaneous Approach (ICD-10-PCS; principal; 2022-05-25)
DX: R19.7 Diarrhea, unspecified (principal); R11.10 Vomiting, unspecified
CPT/HCPCS: 0241U-QW; 36415; 71045-TC-FY; 74177-TC; 80053; 81003; 83605; 84484; 85025; 87086; 87324; 87449; 93005; 93010; 99285-25; Q9967

== ENCOUNTER 2023-08-22 19:29 | Inpatient (IN) | payer OTHER, MEDICARE ==
[2023-08-22 20:47] LABS: BASO % 0.2 % (0-2.0); EOS % 0.1 % (0-4.5); HEMATOCRIT 30.5 % (32.4-45.2); HEMOGLOBIN 10.4 GM/dL (10.7-15.3); LYMPH % 7.1 % (8-40); MCH 37.8 pg (25.7-33.7); MCHC 34.2 g/dl (32.0-36.0); MEAN CELL VOLUME 110.7 fl (80-96); MEAN PLT VOLUME 7.5 fl (7.5-11.1); MONO % 12.3 % (3.8-10.2); NEUT % 80.3 % (42.8-82.8); PLATELET COUNT 306 10^3/uL (134-434); RBC 2.76 M/mm3 (3.60-5.2); RDW 14.9 % (11.6-15.6); WHITE BLOOD COUNT 5.4 K/mm3 (4.0-10.0)
[2023-08-22] MEDS ORDERED: DEXAMETHASONE SOD PHOSPHATE 10 MG/1 ML VIAL ONE (20:48)
[2023-08-22] MEDS ORDERED: ACETAMINOPHEN INJECTION 100 ML IVPB ONE (20:49)
[2023-08-22] MEDS: ACETAMINOPHEN 1000 MG/100 ML BAG IVPB ONE (20:56)
[2023-08-22] MEDS: DEXAMETHASONE SOD PHOSPHATE 10 MG/1 ML VIAL IVPUSH ONE (20:56)
[2023-08-22 21:03] LABS: INR 1.08 (0.83-1.09); PROTHROMBIN TIME (PATIENT) 12.5 SEC (9.7-13.0)
[2023-08-22 21:20] LABS: POTASSIUM 3.7 mmol/L (3.5-5.1)
[2023-08-22 21:22] LABS: CALCIUM 8.5 mg/dL (8.5-10.1)
[2023-08-22 21:23] LABS: ALBUMIN 3.6 g/dl (3.4-5.0); BLOOD UREA NITROGEN 9.6 mg/dL (7-18); MAGNESIUM 1.7 mg/dL (1.8-2.4)
[2023-08-22 21:26] LABS: CREATININE 0.7 mg/dL (0.55-1.3)
[2023-08-22 21:27] LABS: BILIRUBIN,TOTAL 0.5 mg/dL (0.2-1)
[2023-08-22 21:28] LABS: TOT PROT 7.2 g/dl (6.4-8.2)
[2023-08-22] MEDS ORDERED: MAGNESIUM SULFATE IN WATER 2 GM/50 ML IVPB IVPB ONE (22:25)
[2023-08-22] MEDS: MAGNESIUM SULFATE IN WATER 2 GM/50 ML IVPB IVPB ONE (22:33)
[2023-08-22 23:10] LABS: ANISOCYTOSIS 1+; MACROCYTOSIS 0; PLATELET ESTIMATE NORMAL
[2023-08-23 01:03] LABS: N-TERMINAL BNP 320.4 pg/ml (5-450)
[2023-08-23 02:01] VITALS: BMI 26.0
[2023-08-23] MEDS: REMDESIVIR 200 MG in SODIUM CHLORIDE 250 ML IVPB ONE (02:38)
[2023-08-23] MEDS: ACETAMINOPHEN 325 MG TABLET (FP) PO PRN (06:52)
[2023-08-23] MEDS ORDERED: BENZOCAINE/MENTHOL 1 EACH LOZENGE MM PRN (08:04)
[2023-08-23] MEDS ORDERED: guaiFENesin/D-METHORPHAN HB 10 ML UNIT-DOSE CUPS PO PRN (08:49)
[2023-08-23 09:01] LABS: BASO % 0.2 % (0-2.0); HEMATOCRIT 29.6 % (32.4-45.2); HEMOGLOBIN 10.2 GM/dL (10.7-15.3); LYMPH % 6.7 % (8-40); MCH 38.6 pg (25.7-33.7); MCHC 34.6 g/dl (32.0-36.0); MEAN CELL VOLUME 111.7 fl (80-96); MEAN PLT VOLUME 7.7 fl (7.5-11.1); MONO % 5.6 % (3.8-10.2); NEUT % 87.5 % (42.8-82.8); PLATELET COUNT 302 10^3/uL (134-434); RBC 2.65 M/mm3 (3.60-5.2); RDW 14.8 % (11.6-15.6); WHITE BLOOD COUNT 6.4 K/mm3 (4.0-10.0)
[2023-08-23 09:34] LABS: POTASSIUM 3.7 mmol/L (3.5-5.1)
[2023-08-23 09:36] LABS: ALBUMIN 3.4 g/dl (3.4-5.0); CALCIUM 8.1 mg/dL (8.5-10.1)
[2023-08-23 09:37] LABS: BLOOD UREA NITROGEN 9.4 mg/dL (7-18); MAGNESIUM 2.3 mg/dL (1.8-2.4)
[2023-08-23 09:39] LABS: CREATININE 0.7 mg/dL (0.55-1.3)
[2023-08-23 09:40] LABS: PHOSPHOROUS 2.9 mg/dL (2.5-4.9)
[2023-08-23 09:41] LABS: BILIRUBIN,TOTAL 0.4 mg/dL (0.2-1)
[2023-08-23] MEDS ORDERED: DEXAMETHASONE SOD PHOSPHATE 10 MG/1 ML VIAL IVPUSH SCH (10:00)
[2023-08-23] MEDS: DEXAMETHASONE 4 MG TABLET (FP) PO SCH (10:07)
[2023-08-23] MEDS: ACETAMINOPHEN 1000 MG/100 ML BAG IVPB ONE (10:07)
[2023-08-23] MEDS: ENOXAPARIN NA (PORCINE) 40 MG/0.4 ML DISP.SYRIN SQ SCH (10:07)
[2023-08-23] MEDS: ASPIRIN 81 MG CHEWABLE TABLETS PO SCH (10:08)
[2023-08-23] MEDS: amLODIPine BESYLATE 2.5 MG TABLET (FP) PO SCH (10:08)
[2023-08-23] MEDS: GABAPENTIN 100 MG CAPSULE PO SCH (10:08)
[2023-08-23] MEDS: VALSARTAN 160 MG TABLET PO SCH (10:08)
[2023-08-23] MEDS: PANTOPRAZOLE 20 MG TABLET PO SCH (10:08)
[2023-08-23] MEDS: RANOLAZINE E.R. 500 MG TABLET (FP) PO SCH (10:08)
[2023-08-23] MEDS: CALCIUM 500MG/VIT-D 200 UNITS COMBO TABLET (FP) PO SCH (10:08)
[2023-08-23] MEDS: BENZOCAINE/MENTHOL 1 EACH LOZENGE MM SCH (11:08)
[2023-08-23] MEDS: guaiFENesin/D-METHORPHAN TAB.ER.12H PO SCH (11:30)
[2023-08-23] MEDS ORDERED: REMDESIVIR 100 MG in SODIUM CHLORIDE 270 ML IVPB ONE (12:00)
[2023-08-23] MEDS: guaiFENesin/D-M SUGAR-FREE/ACLHOL-FREE 118 ML BOTTLE PO PRN (13:16)
[2023-08-23 21:06] VITALS: RESP 18
[2023-08-23] MEDS: ATORVASTATIN CA 40 MG TABLET (FP) PO SCH (21:07)
[2023-08-23] MEDS: INSULIN ASPART SLIDING SCALE (NOVOLOG) 1 VIAL SQ SCH (23:12)
[2023-08-24] MEDS ORDERED: REMDESIVIR 100 MG in SODIUM CHLORIDE 270 ML IVPB ONE (02:00)
[2023-08-24 09:04] LABS: HEMATOCRIT 33.5 % (32.4-45.2); HEMOGLOBIN 11.1 GM/dL (10.7-15.3); MCH 37.6 pg (25.7-33.7); MCHC 33.2 g/dl (32.0-36.0); MEAN CELL VOLUME 113.1 fl (80-96); MEAN PLT VOLUME 7.7 fl (7.5-11.1); PLATELET COUNT 363 10^3/uL (134-434); RBC 2.96 M/mm3 (3.60-5.2); RDW 14.7 % (11.6-15.6); WHITE BLOOD COUNT 7.6 K/mm3 (4.0-10.0)
[2023-08-24 09:36] LABS: ALBUMIN 3.7 g/dl (3.4-5.0)
[2023-08-24 09:40] LABS: CALCIUM 8.7 mg/dL (8.5-10.1)
[2023-08-24 09:41] LABS: BLOOD UREA NITROGEN 17.1 mg/dL (7-18)
[2023-08-24 09:43] LABS: CREATININE 0.8 mg/dL (0.55-1.3)
[2023-08-24 09:45] LABS: BILIRUBIN,TOTAL 0.5 mg/dL (0.2-1); TOT PROT 7.6 g/dl (6.4-8.2)
[2023-08-24] MEDS: REMDESIVIR 100 MG in SODIUM CHLORIDE 250 ML IVPB SCH (09:58)
[2023-08-24] MEDS: ACETAMINOPHEN 1000 MG/100 ML BAG IVPB ONE (09:59)
[2023-08-24 14:43] VITALS: BP 119/56; PULSE 69; TEMP 98.8
== END 2023-08-24 17:35 | disposition home or self-care (01) | DRG 179 ==
LOC: JER 19:29 → JERBED 08-23 00:06 → J6S 08-23 01:30
PROVIDERS: ADMIT Internal Medicine; ATTEND Internal Medicine
PROC: XW033E5 Introduction of Remdesivir Anti-infective into Peripheral Vein, Percutaneous Approach, New Technology Group 5 (ICD-10-PCS; principal; 2023-08-23)
DX: U07.1 COVID-19 (principal); I10 Essential (primary) hypertension; E78.5 Hyperlipidemia, unspecified; M79.7 Fibromyalgia; E11.9 Type 2 diabetes mellitus without complications; K21.9 Gastro-esophageal reflux disease without esophagitis; Z79.84 Long term (current) use of oral hypoglycemic drugs; D53.9 Nutritional anemia, unspecified
CPT/HCPCS: 0241U-QW; 36415; 71045-TC-FY; 80053; 82136; 82607; 82728; 82746; 82962; 83540; 83550; 83735; 83880; 83918; 84100; 84443; 84484; 85025; 85027; 85045; 85379; 85610; 85730; 86140; 93005; 93010; 99285-25; J0131; J0248; J1100

== ENCOUNTER 2023-09-03 15:18 | Emergency (ER) | payer OTHER, MEDICARE ==
[2023-09-03 15:27] VITALS: BMI 25.9
[2023-09-03 17:24] LABS: BASO % 0.4 % (0-2.0); EOS % 0.6 % (0-4.5); HEMATOCRIT 31.3 % (32.4-45.2); HEMOGLOBIN 10.6 GM/dL (10.7-15.3); LYMPH % 15.2 % (8-40); MCH 37.6 pg (25.7-33.7); MEAN CELL VOLUME 110.9 fl (80-96); MEAN PLT VOLUME 6.5 fl (7.5-11.1); MONO % 12.2 % (3.8-10.2); NEUT % 71.6 % (42.8-82.8); PLATELET COUNT 338 10^3/uL (134-434); RBC 2.83 M/mm3 (3.60-5.2); RDW 14.1 % (11.6-15.6); WHITE BLOOD COUNT 5.8 K/mm3 (4.0-10.0)
[2023-09-03 17:41] LABS: ANISOCYTOSIS 0; MACROCYTOSIS 2+
[2023-09-03 17:42] LABS: POTASSIUM 5.7 mmol/L (3.5-5.1)
[2023-09-03 17:44] LABS: BLOOD UREA NITROGEN 7.3 mg/dL (7-18); CALCIUM 8.4 mg/dL (8.5-10.1)
[2023-09-03 17:47] LABS: CREATININE 0.7 mg/dL (0.55-1.3)
[2023-09-03 17:49] LABS: BILIRUBIN,TOTAL 0.5 mg/dL (0.2-1); TOT PROT 7.1 g/dl (6.4-8.2)
[2023-09-03 18:03] LABS: ALBUMIN 2.9 g/dl (3.4-5.0)
[2023-09-03] MEDS ORDERED: DEXAMETHASONE SOD PHOSPHATE 10 MG/1 ML VIAL ONE (18:53)
[2023-09-03] MEDS ORDERED: ALBUTEROL SO4 2.5/IPRATROPIUM 0.5 INH SOL 3 ML VIAL.NEB. NEB ONE (18:53)
[2023-09-03] MEDS: DEXAMETHASONE SOD PHOSPHATE 10 MG/1 ML VIAL IVPUSH ONE (19:03)
[2023-09-03] MEDS: ALBUTEROL SO4 2.5/IPRATROPIUM 0.5 INH SOL 3 ML VIAL.NEB. NEB ONE (19:03)
[2023-09-03 19:11] LABS: POTASSIUM 5.6 mmol/L (3.5-5.1)
[2023-09-03 19:12] LABS: CALCIUM 8.8 mg/dL (8.5-10.1)
[2023-09-03 19:13] LABS: BLOOD UREA NITROGEN 6.4 mg/dL (7-18)
[2023-09-03 19:16] LABS: CREATININE 0.6 mg/dL (0.55-1.3)
[2023-09-03] MEDS: SODIUM CHLORIDE 500 ML IV STA (19:27)
[2023-09-03] MEDS: BUDESONIDE 0.5 MG/2 ML INH SUSP VIAL NEB ONE (20:25)
[2023-09-03 20:53] VITALS: BP 152/78; PULSE 82; RESP 20; TEMP 98
== END 2023-09-03 21:00 | disposition home or self-care (01) ==
LOC: JER 15:18
PROC: 3E033GC Introduction of Other Therapeutic Substance into Peripheral Vein, Percutaneous Approach (ICD-10-PCS; principal; 2023-09-03)
PROC: 3E033GC Introduction of Other Therapeutic Substance into Peripheral Vein, Percutaneous Approach (ICD-10-PCS; 2023-09-03)
PROC: 3E0F7GC Introduction of Other Therapeutic Substance into Respiratory Tract, Via Natural or Artificial Opening (ICD-10-PCS; 2023-09-03)
PROC: 3E0F7GC Introduction of Other Therapeutic Substance into Respiratory Tract, Via Natural or Artificial Opening (ICD-10-PCS; 2023-09-03)
DX: R06.02 Shortness of breath (principal); R05.9 Cough, unspecified; R52 Pain, unspecified; R53.83 Other fatigue; R53.1 Weakness; U07.1 COVID-19
CPT/HCPCS: 0241U-QW; 36415; 71045-TC-FY; 80048; 80053; 84484; 85025; 93005; 93010; 99285-25; J1100

== ENCOUNTER 2023-09-06 08:20 | Inpatient (IN) | payer OTHER, MEDICARE ==
[2023-09-06 09:28] LABS: BASO % 0.7 % (0-2.0); EOS % 0.1 % (0-4.5); HEMATOCRIT 31.1 % (32.4-45.2); HEMOGLOBIN 10.6 GM/dL (10.7-15.3); LYMPH % 17.3 % (8-40); MCH 37.5 pg (25.7-33.7); MCHC 34.1 g/dl (32.0-36.0); MEAN CELL VOLUME 109.9 fl (80-96); MEAN PLT VOLUME 6.3 fl (7.5-11.1); MONO % 15.6 % (3.8-10.2); NEUT % 66.3 % (42.8-82.8); PLATELET COUNT 437 10^3/uL (134-434); RBC 2.83 M/mm3 (3.60-5.2); RDW 13.6 % (11.6-15.6); WHITE BLOOD COUNT 5.6 K/mm3 (4.0-10.0)
[2023-09-06 09:34] LABS: INR 1.18 (0.83-1.09); PROTHROMBIN TIME (PATIENT) 13.3 SEC (9.7-13.0)
[2023-09-06 09:37] LABS: ACTIVATED PTT 26.1 SECONDS (25.2-36.5)
[2023-09-06 09:46] LABS: POTASSIUM 3.9 mmol/L (3.5-5.1)
[2023-09-06 09:49] LABS: ALBUMIN 3.2 g/dl (3.4-5.0); BLOOD UREA NITROGEN 8.8 mg/dL (7-18); CALCIUM 8.5 mg/dL (8.5-10.1); MAGNESIUM 1.5 mg/dL (1.8-2.4)
[2023-09-06 09:52] LABS: CREATININE 0.6 mg/dL (0.55-1.3)
[2023-09-06 09:53] LABS: TOT PROT 7.1 g/dl (6.4-8.2)
[2023-09-06 09:54] LABS: BILIRUBIN,TOTAL 0.6 mg/dL (0.2-1)
[2023-09-06] MEDS: ACETAMINOPHEN 1000 MG/100 ML BAG IVPB ONE (09:55)
[2023-09-06] MEDS ORDERED: ACETAMINOPHEN INJECTION 100 ML IVPB ONE (09:55)
[2023-09-06] MEDS ORDERED: ONDANSETRON 4 MG/2 ML VIAL ONE (09:55)
[2023-09-06] MEDS: ONDANSETRON 4 MG/2 ML VIAL IVPUSH ONE (09:56)
[2023-09-06] MEDS: LACTATED RINGERS SOLUTION 1000 ML INFUS.BAG IV ONE (09:56)
[2023-09-06 09:57] LABS: N-TERMINAL BNP 305.9 pg/ml (5-450)
[2023-09-06] MEDS: SODIUM CHLORIDE 1,000 ML IV SCH (10:33)
[2023-09-06] MEDS: MAGNESIUM SULFATE IN WATER 2 GM/50 ML IVPB IVPB ONE (10:33)
[2023-09-06] MEDS ORDERED: MAGNESIUM SULFATE IN WATER 2 GM/50 ML IVPB IVPB ONE (10:35)
[2023-09-06] MEDS ORDERED: METOCLOPRAMIDE HCL INJECTION 10 MG/2 ML VIAL ONE (11:00)
[2023-09-06] MEDS: METOCLOPRAMIDE HCL INJECTION 10 MG/2 ML VIAL IVPB ONE (11:11)
[2023-09-06] MEDS ORDERED: VANCOMYCIN 1 GRAM (PRE-DOCKED) 1,000 MG/250 ML BAG IVPB ONE (13:53)
[2023-09-06] MEDS ORDERED: NAPH,MB-DB/K PH,MBDB POWDER PACKET ONE (13:53)
[2023-09-06] MEDS: VANCOMYCIN 1,000 MG in DEXTROSE 5%-WATER - 250 ML IVPB ONE (13:55)
[2023-09-06] MEDS: NAPH,MB-DB/K PH,MBDB POWDER PACKET PO ONE ×2 (13:55→22:45)
[2023-09-06] MEDS ORDERED: CEFEPIME 1 GM/100 ML BAG IVPB ONE (13:57)
[2023-09-06] MEDS ORDERED: BUDESONIDE/FORMETEROL FUMARATE 80/4.5 mcg INHALER IH PRN (14:04)
[2023-09-06] MEDS ORDERED: IBANDRONATE SODIUM 150 MG PO SCH (14:15)
[2023-09-06] MEDS: CEFEPIME HCL 1 GM VIAL (RESTRICTED TO ID) IVPB ONE (14:24)
[2023-09-06 15:33] LABS: VENOUS BASE EXCESS 0.2 mmol/L (-2-2); VENOUS O2 SATURATION 78.8 % (70-80); VENOUS PCO2 39.8 mmHg (38-52); VENOUS PH 7.412 (7.310-7.410)
[2023-09-06 15:45] LABS: POTASSIUM 4.1 mmol/L (3.5-5.1)
[2023-09-06 15:47] LABS: BLOOD UREA NITROGEN 7.3 mg/dL (7-18); CALCIUM 8.2 mg/dL (8.5-10.1); MAGNESIUM 2.4 mg/dL (1.8-2.4)
[2023-09-06 15:51] LABS: CREATININE 0.5 mg/dL (0.55-1.3)
[2023-09-06] MEDS: DOXYCYCLINE HYCLATE 100 MG CAPSULE PO SCH (15:58)
[2023-09-06] MEDS ORDERED: INSULIN (NOVOLOG) ASPART 100 UNITS/ML 10ML VIAL ONE (16:11)
[2023-09-06] MEDS: INSULIN ASPART SLIDING SCALE (NOVOLOG) 1 VIAL SQ SCH (16:11)
[2023-09-06 20:52] VITALS: BMI 26.4
[2023-09-06] MEDS: ACETAMINOPHEN 325 MG TABLET (FP) PO PRN (20:57)
[2023-09-06] MEDS: GABAPENTIN 100 MG CAPSULE PO SCH (22:43)
[2023-09-06] MEDS: RANOLAZINE E.R. 500 MG TABLET (FP) PO SCH (22:43)
[2023-09-06] MEDS: ATORVASTATIN CA 40 MG TABLET (FP) PO SCH (22:44)
[2023-09-07] MEDS ORDERED: INSULIN (NOVOLOG) ASPART 100 UNITS/ML 10ML VIAL ONE (07:56)
[2023-09-07 08:24] LABS: BASO % 0.4 % (0-2.0); EOS % 0.1 % (0-4.5); HEMATOCRIT 30.3 % (32.4-45.2); HEMOGLOBIN 10.5 GM/dL (10.7-15.3); LYMPH % 12.8 % (8-40); MCH 37.7 pg (25.7-33.7); MCHC 34.8 g/dl (32.0-36.0); MEAN CELL VOLUME 108.6 fl (80-96); MEAN PLT VOLUME 6.6 fl (7.5-11.1); NEUT % 70.7 % (42.8-82.8); PLATELET COUNT 440 10^3/uL (134-434); RBC 2.79 M/mm3 (3.60-5.2); RDW 13.7 % (11.6-15.6); WHITE BLOOD COUNT 5.1 K/mm3 (4.0-10.0)
[2023-09-07 08:36] LABS: EPI CELLS 7 /uL (0-25.1); HYALINE CASTS 0 /uL (0-3.1); URINE APPEARANCE CLEAR; URINE BACTERIA 854 /uL (0-1359); URINE BILIRUBIN NEGATIVE (NEGATIVE); URINE COLOR YELLOW; URINE GLUCOSE (UA) TRACE (NEGATIVE); URINE KETONE TRACE (NEGATIVE); URINE LEUK ESTERASE NEGATIVE (NEGATIVE); URINE NITRITE NEGATIVE (NEGATIVE); URINE PROTEIN NEGATIVE (NEGATIVE); URINE RBC 45 /uL (0-23.9); URINE UROBILINOGEN 0.2 mg/dL (0.2-1.0); URINE WBC 1 /uL (0-25.8)
[2023-09-07 08:42] LABS: CHLORIDE 86 mmol/L (98-107); POTASSIUM 3.4 mmol/L (3.5-5.1)
[2023-09-07 08:54] LABS: CALCIUM 7.6 mg/dL (8.5-10.1); CO2 24 mmol/L (21-32); GLUCOSE,RANDOM 178 mg/dL (74-106); MAGNESIUM 1.9 mg/dL (1.8-2.4)
[2023-09-07 08:55] LABS: ALBUMIN 3.1 g/dl (3.4-5.0)
[2023-09-07 08:57] LABS: PHOSPHOROUS 2.2 mg/dL (2.5-4.9); SGOT/AST 61 U/L (15-37); SGPT/ALT 24 U/L (13-61)
[2023-09-07 08:58] LABS: CREATININE 0.4 mg/dL (0.55-1.3)
[2023-09-07 08:59] LABS: TOT PROT 6.4 g/dl (6.4-8.2)
[2023-09-07 09:00] LABS: ALK PHOS 73 U/L (45-117); ANION GAP 9 mmol/L (4-13); SODIUM 119 mmol/L (136-145)
[2023-09-07] MEDS ORDERED: ALBUTEROL SO4 2.5/IPRATROPIUM 0.5 INH SOL 3 ML VIAL.NEB. NEB PRN (09:47)
[2023-09-07 10:48] LABS: ANISOCYTOSIS 1+; MACROCYTOSIS 2+
[2023-09-07] MEDS: BENZONATATE 200 MG CAPSULE PO SCH (11:15)
[2023-09-07] MEDS: PANTOPRAZOLE 20 MG TABLET PO SCH (11:16)
[2023-09-07] MEDS: amLODIPine BESYLATE 2.5 MG TABLET (FP) PO SCH (11:16)
[2023-09-07] MEDS: ENOXAPARIN NA (PORCINE) 40 MG/0.4 ML DISP.SYRIN SQ SCH (11:16)
[2023-09-07] MEDS: ASPIRIN 81 MG CHEWABLE TABLETS PO SCH (11:17)
[2023-09-07] MEDS: VALSARTAN 160 MG TABLET PO SCH (11:17)
[2023-09-07] MEDS: POTASSIUM CHLORIDE ORAL LIQUID 20 MEQ/15 ML PO ONE (11:19)
[2023-09-07] MEDS: guaiFENesin/D-METHORPHAN HB 10 ML UNIT-DOSE CUPS PO PRN (13:46)
[2023-09-07] MEDS: ALBUTEROL SO4 2.5/IPRATROPIUM 0.5 INH SOL 3 ML VIAL.NEB. NEB SCH (15:40)
[2023-09-07 17:09] LABS: CHLORIDE 86 mmol/L (98-107); POTASSIUM 3.7 mmol/L (3.5-5.1)
[2023-09-07 17:10] LABS: BLOOD UREA NITROGEN 8.4 mg/dL (7-18); CO2 25 mmol/L (21-32)
[2023-09-07 17:11] LABS: GLUCOSE,RANDOM 217 mg/dL (74-106)
[2023-09-07 17:14] LABS: CREATININE 0.5 mg/dL (0.55-1.3)
[2023-09-07 17:17] LABS: ANION GAP 8 mmol/L (4-13); SODIUM 119 mmol/L (136-145)
[2023-09-07] MEDS: AZITHROMYCIN IVPB 500 MG in DEXTROSE 5%-WATER - 250 ML IVPB ONE (18:15)
[2023-09-07] MEDS: NAPH,MB-DB/K PH,MBDB POWDER PACKET PO SCH (18:25)
[2023-09-08 07:50] LABS: BASO % 0.3 % (0-2.0); EOS % 0.1 % (0-4.5); HEMATOCRIT 30.1 % (32.4-45.2); HEMOGLOBIN 10.7 GM/dL (10.7-15.3); MCH 38.4 pg (25.7-33.7); MCHC 35.4 g/dl (32.0-36.0); MEAN CELL VOLUME 108.3 fl (80-96); MONO % 18.4 % (3.8-10.2); NEUT % 64.2 % (42.8-82.8); PLATELET COUNT 435 10^3/uL (134-434); RBC 2.78 M/mm3 (3.60-5.2); RDW 13.6 % (11.6-15.6); WHITE BLOOD COUNT 3.9 K/mm3 (4.0-10.0)
[2023-09-08 08:03] LABS: POTASSIUM 3.3 mmol/L (3.5-5.1)
[2023-09-08 08:12] LABS: CALCIUM 7.9 mg/dL (8.5-10.1)
[2023-09-08 08:13] LABS: ALBUMIN 2.8 g/dl (3.4-5.0); BLOOD UREA NITROGEN 5.7 mg/dL (7-18); MAGNESIUM 1.8 mg/dL (1.8-2.4)
[2023-09-08 08:17] LABS: CREATININE 0.5 mg/dL (0.55-1.3); PHOSPHOROUS 2.2 mg/dL (2.5-4.9)
[2023-09-08 08:18] LABS: BILIRUBIN,TOTAL 0.7 mg/dL (0.2-1); TOT PROT 6.2 g/dl (6.4-8.2)
[2023-09-08] MEDS: POTASSIUM CHLORIDE ORAL LIQUID 20 MEQ/15 ML PO ONE (09:54)
[2023-09-08] MEDS: SODIUM CHLORIDE 1 GM TABLET PO ONE (15:19)
[2023-09-08 16:02] LABS: POTASSIUM 3.9 mmol/L (3.5-5.1)
[2023-09-08 16:06] LABS: BLOOD UREA NITROGEN 7.5 mg/dL (7-18); CALCIUM 8.5 mg/dL (8.5-10.1)
[2023-09-08 16:10] LABS: CREATININE 0.5 mg/dL (0.55-1.3)
[2023-09-08] MEDS ORDERED: INSULIN (NOVOLOG) ASPART 100 UNITS/ML 10ML VIAL ONE (17:08)
[2023-09-08] MEDS: SODIUM CHLORIDE 1 GM TABLET PO SCH (19:30)
[2023-09-08] MEDS ORDERED: SODIUM CHLORIDE 1 GM TABLET PO SCH (22:00)
[2023-09-08] MEDS: guaiFENesin/CODEINE 10 ML UNIT-DOSE CUPS PO PRN (22:45)
[2023-09-08] MEDS: ALBUTEROL SO4 2.5/IPRATROPIUM 0.5 INH SOL 3 ML VIAL.NEB. NEB PRN (23:23)
[2023-09-09 09:33] LABS: HEMATOCRIT 29.7 % (32.4-45.2); HEMOGLOBIN 10.5 GM/dL (10.7-15.3); MCH 38.7 pg (25.7-33.7); MCHC 35.5 g/dl (32.0-36.0); MEAN CELL VOLUME 109.1 fl (80-96); MEAN PLT VOLUME 6.2 fl (7.5-11.1); PLATELET COUNT 451 10^3/uL (134-434); RBC 2.72 M/mm3 (3.60-5.2); RDW 14.1 % (11.6-15.6); WHITE BLOOD COUNT 4.1 K/mm3 (4.0-10.0)
[2023-09-09 09:51] LABS: POTASSIUM 3.9 mmol/L (3.5-5.1)
[2023-09-09 10:02] LABS: CALCIUM 8.8 mg/dL (8.5-10.1)
[2023-09-09 10:03] LABS: BLOOD UREA NITROGEN 9.7 mg/dL (7-18)
[2023-09-09 10:06] LABS: CREATININE 0.7 mg/dL (0.55-1.3)
[2023-09-09 10:07] LABS: BILIRUBIN,TOTAL 0.7 mg/dL (0.2-1); TOT PROT 6.2 g/dl (6.4-8.2)
[2023-09-09] MEDS: CEFTRIAXONE 1 GM in DEXTROSE 5%-WATER - 50 ML IVPB SCH (12:28)
[2023-09-09] MEDS: SODIUM CHLORIDE 1 GM TABLET PO SCH (22:06)
[2023-09-10 09:10] LABS: HEMOGLOBIN 10.3 GM/dL (10.7-15.3); MCH 37.9 pg (25.7-33.7); MCHC 34.2 g/dl (32.0-36.0); MEAN CELL VOLUME 110.9 fl (80-96); MEAN PLT VOLUME 6.2 fl (7.5-11.1); PLATELET COUNT 420 10^3/uL (134-434); RBC 2.71 M/mm3 (3.60-5.2); RDW 13.6 % (11.6-15.6); WHITE BLOOD COUNT 5.8 K/mm3 (4.0-10.0)
[2023-09-10 09:38] LABS: BLOOD UREA NITROGEN 11.8 mg/dL (7-18); CALCIUM 9.2 mg/dL (8.5-10.1)
[2023-09-10 09:40] LABS: PHOSPHOROUS 3.6 mg/dL (2.5-4.9)
[2023-09-10 09:41] LABS: CREATININE 0.6 mg/dL (0.55-1.3)
[2023-09-10] MEDS: PHENAZOPYRIDINE HCL 100 MG TABLET (FP) PO SCH (10:22)
[2023-09-10] MEDS ORDERED: PHENAZOPYRIDINE HCL 100 MG TABLET (FP) PO SCH (13:00)
[2023-09-10] MEDS: POLYETHYLENE GLYCOL (HEALTHYLAX) 3350 17 GM PACKET PO SCH (17:58)
[2023-09-10] MEDS: BUDESONIDE/FORMETEROL FUMARATE 80/4.5 mcg INHALER IH SCH (21:46)
[2023-09-10] MEDS: SENNOSIDES/DOCUSATE COMBO (SENNA PLUS) TABLET (UD) PO SCH (21:46)
[2023-09-11 07:24] LABS: POTASSIUM 4.3 mmol/L (3.5-5.1)
[2023-09-11 07:30] LABS: CALCIUM 9.1 mg/dL (8.5-10.1)
[2023-09-11 07:31] LABS: BLOOD UREA NITROGEN 15.5 mg/dL (7-18)
[2023-09-11 07:34] LABS: CREATININE 0.7 mg/dL (0.55-1.3)
[2023-09-11] MEDS ORDERED: MAGNESIUM HYDROX 2400MG/30ML ORAL SUSPENSION 30 ML CUP PO PRN (09:29)
[2023-09-11] MEDS: DOCUSATE SODIUM 100 MG CAPSULE (FP) PO SCH (10:08)
[2023-09-11] MEDS: BENZOCAINE/MENTH/CETYLPYRD CL 1 EACH LOZENGE MM PRN (11:09)
[2023-09-12 09:16] LABS: POTASSIUM 4.2 mmol/L (3.5-5.1)
[2023-09-12 09:18] LABS: CALCIUM 9.2 mg/dL (8.5-10.1)
[2023-09-12 09:22] LABS: CREATININE 0.6 mg/dL (0.55-1.3)
[2023-09-12] MEDS: SODIUM CHLORIDE 1 GM TABLET PO SCH (10:12)
[2023-09-12] MEDS ORDERED: PHENAZOPYRIDINE HCL 100 MG TABLET (FP) PO PRN (11:35)
[2023-09-12 23:12] VITALS: RESP 18
[2023-09-13] MEDS ORDERED: INSULIN (NOVOLOG) ASPART 100 UNITS/ML 10ML VIAL ONE (07:08)
[2023-09-13 08:17] LABS: POTASSIUM 4.4 mmol/L (3.5-5.1)
[2023-09-13 08:25] LABS: CALCIUM 9.1 mg/dL (8.5-10.1)
[2023-09-13 08:26] LABS: BLOOD UREA NITROGEN 18.2 mg/dL (7-18)
[2023-09-13 08:28] LABS: CREATININE 0.7 mg/dL (0.55-1.3)
[2023-09-13 11:10] VITALS: BP 107/52; PULSE 63; TEMP 97.5
[2023-09-13] MEDS ORDERED: BENZONATATE 100 MG CAPSULE PO SCH (14:00)
== END 2023-09-13 11:05 | disposition home health service (06) | DRG 640 ==
LOC: JER 08:20 → JERBED 11:53 → J7W 18:49 → OBSVTOIN 09-07 13:25 → J7W 09-07 21:56
PROVIDERS: ADMIT Internal Medicine; ATTEND Internal Medicine
DX: E87.1 Hypo-osmolality and hyponatremia (principal); U07.1 COVID-19; I50.32 Chronic diastolic (congestive) heart failure; N39.0 Urinary tract infection, site not specified; E83.42 Hypomagnesemia; E11.9 Type 2 diabetes mellitus without complications; E78.5 Hyperlipidemia, unspecified; I10 Essential (primary) hypertension; K21.9 Gastro-esophageal reflux disease without esophagitis; I11.0 Hypertensive heart disease with heart failure; E83.39 Other disorders of phosphorus metabolism
CPT/HCPCS: 0241U-QW; 36415; 71045-TC-FY; 71275-TC; 80048; 80053; 81003; 82533; 82803; 82962; 83735; 83880; 83930; 83935; 84100; 84295; 84300; 84443; 84484; 85025; 85027; 85610; 85730; 87086; 87186; 93005; 93010; 93306-TC; 94010; 94640; 97116-GP; 97161-GP; 99285-25; G0378; J0131; Q9967

== ENCOUNTER 2024-01-31 04:28 | Day surgery (SDC) | payer OTHER, MEDICARE ==
[2024-01-25 09:32] VITALS: BMI 24.4
[2024-01-31 10:00] VITALS: TEMP 98.3
[2024-01-31 10:12] VITALS: RESP 20
[2024-01-31 10:37] VITALS: PULSE 67
[2024-01-31 10:39] VITALS: BP 148/62
== END 2024-01-31 10:46 | disposition home or self-care (01) ==
LOC: JASU-ENDO 04:28
PROVIDERS: ATTEND Internal Medicine Gastroenterology
PROC: 0DB98ZX Excision of Duodenum, Via Natural or Artificial Opening Endoscopic, Diagnostic (ICD-10-PCS; 2024-01-31)
PROC: 0DB78ZX Excision of Stomach, Pylorus, Via Natural or Artificial Opening Endoscopic, Diagnostic (ICD-10-PCS; 2024-01-31)
PROC: 0DB28ZX Excision of Middle Esophagus, Via Natural or Artificial Opening Endoscopic, Diagnostic (ICD-10-PCS; 2024-01-31)
PROC: 0DB38ZX Excision of Lower Esophagus, Via Natural or Artificial Opening Endoscopic, Diagnostic (ICD-10-PCS; 2024-01-31)
PROC: 0DJD8ZZ Inspection of Lower Intestinal Tract, Via Natural or Artificial Opening Endoscopic (ICD-10-PCS; principal; 2024-01-31 09:30)
DX: Z12.11 Encounter for screening for malignant neoplasm of colon (principal); K29.50 Unspecified chronic gastritis without bleeding; K44.9 Diaphragmatic hernia without obstruction or gangrene; K64.8 Other hemorrhoids; R93.3 Abnormal findings on diagnostic imaging of other parts of digestive tract; Z80.0 Family history of malignant neoplasm of digestive organs
CPT/HCPCS: 43239; G0105; 88305-TC; 88342-TC